=== PATIENT | male | born 1965 | race Caucasian/White ===

== ENCOUNTER → 2018-02-24 | Outpatient (CLI) | payer BC ==
--- NOTE | 2018-02-24 16:31 | ECHOF ---
Referral Reason:R94.31 Abnodrmal ekg MEASUREMENTS -------- HEIGHT: 185.4 cm WEIGHT: 113.4 kg BP: 147/83 RVIDd: 2.7 cm (< 3.3) IVSd: 1.4 cm (0.6 - 1.1) LVIDd: 4.8 cm (3.9 - 5.3) LVPWd: 1.5 cm (0.6 - 1.1) IVSs: 1.9 cm LVIDs: 3.3 cm LVPWs: 1.6 cm LA Diam: 3.8 cm (2.7 - 3.8) LAESV Index (A-L): 20.80 ml/m Ao Diam: 3.7 cm (2.0 - 3.7) AV Cusp: 2.2 cm (1.5 - 2.6) MV EXCURSION: 19.436 mm (> 18.000) MV EF SLOPE: 96 mm/s (70 - 150) EPSS: 0.3 cm MV E Ryley: 0.66 m/s MV DecT: 250 ms MV A Ryley: 0.77 m/s MV E/A Ratio: 0.85 FINDINGS -------- Sinus rhythm. This was a technically adequate study. The left ventricular size is normal. There is moderate concentric left ventricular hypertrophy. O verall left ventricular systolic function is normal with, an EF between 55 - 60 %. The right ventricle is normal in size. Normal LA size by volume 22+/-6 ml/m2. The right atrium is normal in size. The aortic valve is trileaflet and appears structurally normal. Mild mitral annular calcification present. The tricuspid valve appears structurally normal. The pulmonic valve was not well visualized. The aortic root size is normal. Normal inferior vena cava with normal inspiratory collapse consistent with estimated right atrial pre ssure of 5 mmHg. There is no pericardial effusion. CONCLUSIONS -------- 1. Sinus rhythm. 2. This was a technically adequate study. 3. The left ventricular size is normal. 4. There is moderate concentric left ventricular hypertrophy. 5. Overall left ventricular systolic function is normal with, an EF between 55 - 60 %. 6. The right ventricle is normal in size. 7. Normal LA size by volume 22+/-6 ml/m2. 8. The right atrium is normal in size. 9. The aortic valve is trileaflet and appears structurally normal. 10. Mild mitral annular calcification present. 11. The tricuspid valve appears structurally normal. 12. The pulmonic valve was not well visualized. 13. The aortic root size is normal. 14. Normal inferior vena cava with normal inspiratory collapse consistent with estimated right atrial pressure of 5 mmHg. 15. There is no pericardial effusion. TERRITORY ACCOUNT EXECUTIVE: Lidia Weiss RDCS
== END | disposition home or self-care (01) ==
LOC: RADECHMAIN 13:48
PROVIDERS: ATTEND Internal Medicine
DX: I51.7 Cardiomegaly (principal); I05.8 Other rheumatic mitral valve diseases
CPT/HCPCS: 93306

== ENCOUNTER → 2018-03-26 | Outpatient (CLI) | payer BC ==
--- NOTE | 2018-03-26 14:38 | US ---
EXAMINATION TYPE: US kidneys/renal and bladder DATE OF EXAM: 03/26/2018 COMPARISON: NONE CLINICAL HISTORY: N39.0 UTI. EXAM MEASUREMENTS: Right Kidney: 11.2 x 5.5 x 6.0 cm Left Kidney: 10.1 x 6.5 x 5.4 cm Right Kidney: No hydronephrosis or masses seen Left Kidney: No hydronephrosis or masses seen Bladder: wnl Bilateral Jets seen: Yes There is no evidence for hydronephrosis at this point in time. No nephrolithiasis is seen. No april s are identified on images saved. The urinary bladder is anechoic. Bilateral ureteral jets are seen . IMPRESSION: Unremarkable study.
== END ==
LOC: RADUSWWP 14:07
PROVIDERS: ATTEND Internal Medicine
DX: N39.0 Urinary tract infection, site not specified (principal)
CPT/HCPCS: 76770

== ENCOUNTER 2023-11-23 01:32 | Inpatient (IN) | payer BC ==
[2023-11-23 02:44] LABS: INR 0.9 (<1.2); Prothrombin Time 10.3 sec (10.0-12.5)
[2023-11-23 02:46] LABS: Basophils # (A) 0.1 k/uL (0-0.2); Basophils % (A) 0 %; Eosinophils # (A) 0.1 k/uL (0-0.7); Eosinophils % (A) 0 %; HCT 41.4 % (39.0-53.0); HGB 14.5 gm/dL (13.0-17.5); Lymphocytes # (A) 0.8 k/uL (1.0-4.8); Lymphocytes % (A) 4 %; MCH 34.2 pg (25.0-35.0); MCHC 35.1 g/dL (31.0-37.0); MCV 97.4 fL (80.0-100.0); Mean Platelet Volume 8.7; Monocytes % (A) 5 %; Neutrophils # (A) 16.9 k/uL (1.3-7.7); Neutrophils % (A) 89 %; Platelet Count 207 k/uL (150-450); RBC 4.25 m/uL (4.30-5.90); RDW 13.1 % (11.5-15.5); WBC 18.9 k/uL (3.8-10.6)
[2023-11-23 02:48] LABS: ALT 16 U/L (4-49); AST 26 U/L (17-59); African American GFR (CKD) >90 (>60 ml/min/1.73 sqM); Albumin 3.8 g/dL (3.5-5.0); Alkaline Phosphatase 92 U/L (38-126); Anion Gap 10 mmol/L; Blood Urea Nitrogen 7 mg/dL (9-20); Calcium 8.7 mg/dL (8.4-10.2); Carbon Dioxide 22 mmol/L (22-30); Chloride 105 mmol/L (98-107); Glucose 138 mg/dL (74-99); Non-African American GFR(CKD) >90 (>60 ml/min/1.73 sqM); Potassium 4.1 mmol/L (3.5-5.1); Sodium 137 mmol/L (137-145); Total Bilirubin 1.2 mg/dL (0.2-1.3); Total Protein 6.7 g/dL (6.3-8.2)
[2023-11-23] MEDS ORDERED: MORPHINE SULFATE 4 MG/ML SYRINGE IV PRN (02:52)
[2023-11-23] MEDS ORDERED: ONDANSETRON 4 MG/2 ML VIAL IVP PRN (02:52)
[2023-11-23] MEDS ORDERED: NALOXONE 0.4 MG/ML 1 ML VIAL IV PRN (02:52)
[2023-11-23] MEDS: SODIUM CHLORIDE 0.9% 1,000 ML IV SCH ×2 (03:18→09:43)
--- NOTE | 2023-11-23 03:19 | ED ---
General Adult HPI - General Chief complaint: Skin/Abscess/Foreign Body Stated complaint: Celluitis Time Seen by Provider: 11/23/23 01:39 Source: patient, EMS Mode of arrival: EMS - History of Present Illness Initial comments: Cornell is a 58-year-old male RIGHT hand dominant, was sent to our hospital for evaluation by orthopedics due to a possible flexor tenosynovitis of the left hand. Patient reports that on of this week he had his dog at the vet, the dog bit him on his left hand. Patient washed the hand but didn't receive any treatment or antibiotics. The hand is become more painful swollen patient feels that he can barely move his thumb and index finger. Redness and swelling is tracking up his arm which prompted him to go to the ER for evaluation. The outside ER he was found to have a white count of 18.4 and was started on Unasyn. Patient does note that some years ago he was hospitalized for 4-5 days due to similar infections in bilateral hands after being bitten by one of his dogs. At the outside ER patient was also found to have a blood pressure of 240/140 and his EKG showed some possible ST depressions had a thorough workup including troponins which were negative. His blood pressure failed to improve with labetalol injections and he was started on a Cardene infusion and transferred here for further management. - Related Data Allergies Allergy/AdvReac Type Severity Reaction Status Date / Time No Known Allergies Allergy Verified 11/23/23 01:56 Review of Systems ROS Statement: Those systems with pertinent positive or pertinent negative responses have been documented in the HPI. ROS Other: All systems not noted in ROS Statement are negative. Past Medical History Past Medical History: Hypertension Additional Past Medical History / Comment(s): hernia History of Any Multi-Drug Resistant Organisms: None Reported Past Surgical History: No Surgical Hx Reported Smoking Status: Current every day smoker Past Alcohol Use History: Daily Past Drug Use History: Marijuana General Exam Limitations: no limitations General appearance: alert Head exam: Present: atraumatic, normocephalic Eye exam: Present: normal appearance ENT exam: Present: normal exam Respiratory exam: Absent: respiratory distress Cardiovascular Exam: Present: normal rhythm GI/Abdominal exam: Present: soft. Absent: distended Rectal exam: Present: deferred Left Forearm Wrist exam: Present: tenderness, swelling, erythema Hand Wrist exam: Present: tenderness, swelling, erythema Neuro motor exam: Present: wrist extension intact, fingers 2-5 abduction intact. Absent: thumb opposition intact, thumb IP flexion intact, thumb adduction intact Vascular: Present: normal capillary refill Neurological exam: Present: alert, oriented X3 Psychiatric exam: Present: normal affect, normal mood Skin exam: Present: warm, dry Course Vital Signs 11/23/23 01:36 Temperature 98.4 F Pulse Rate 87 Respiratory 20 Rate Blood Pressure 167/93 O2 Sat by Pulse 97 Oximetry EKG Findings - EKG Comments: EKG Findings:: EKG interpreted by me, EKG obtained due to hypertension, EKG obtained at 1:49 AM, rate is 91 rhythm is sinus with leftward axis, normal intervals [place] 136 QRS 112 QTC [address] elevations there's mild ST depressions in the inferior leads no evidence of acute infarction. Medical Decision Making - Medical Decision Making Was pt. sent in by a medical professional or institution (, PA, DIRECT MAIL CLERK, urgent care, hospital, or skilled nursing...) When possible be specific @ -Yes, transfer from outside facility Did you speak to anyone other than the patient for history (EMS, parent, family, police, friend...)? What history was obtained from this source @ Yes, , EMS Did you review nursing and triage notes (agree or disagree)? Why? @ -I reviewed and agree with nursing and triage notes Were old charts reviewed (outside hosp., previous admission, EMS record, old EKG, old radiological studies, urgent care reports/EKG's, skilled nursing records)? Report findings @ -No old charts were reviewed Differential Diagnosis (chest pain, altered mental status, abdominal pain women, abdominal pain men, vaginal bleeding, weakness, fever, dyspnea, syncope, headache, dizziness, GI bleed, back pain, seizure, CVA, palpatations, mental health)? @ -differential cellulitis of the hand, abscess, flexor tenosynovitis EKG interpreted by me (3pts min.). @ -As above X-rays interpreted by me (1pt min.). @ -X-ray of the left hand with no obvious free air or foreign bodies CT interpreted by me (1pt min.). @ -None done U/S interpreted by me (1pt. min.). @ -None done What testing was considered but not performed or refused? (CT, X-rays, U/S, labs)? Why? @ -None What meds were considered but not given or refused? Why? @ -Cardene was discontinued upon arrival due to change in blood pressure greater than goal Did you discuss the management of the patient with other professionals (professionals i.e. , PA, DIRECT MAIL CLERK, lab, RT, psych nurse, medical social consultant, upsetter helper, teacher, commanding officer traffic division, showcase trimmer)? Give summary @ -YES discussed with Dr. Mosquera Was smoking cessation discussed for >3mins.? @ -No Was critical care preformed (if so, how long)? @ -No Were there social determinants of health that impacted care today? How? (H omelessness, low income, unemployed, alcoholism, drug addiction, transportation, low edu. Level, literacy, decrease access to med. care, snf, rehab)? @ -Alcoholism Was there de-escalation of care discussed even if they declined (Discuss DNR or withdrawal of care, Hospice)? DNR status @ -No What co-morbidities impacted this encounter? (DM, HTN, Smoking, COPD, CAD, Cancer, CVA, ARF, Chemo, Hep., AIDS, mental health diagnosis, sleep apnea, morbid obesity)? @ -Hypertension, smoking, alcohol use Was patient admitted / discharged? Hospital course, mention meds given and route, prescriptions, significant lab abnormalities, going to OR and other pertinent info. @ -Admit Patient care was discussed with transferring physician upon arrival x-rays of the hand were performed I see no gas in the tissues I see no foreign bodies. Management of the patient's acute infection of his hand was discussed with Dr. Mosquera agrees with plan for admission to medicine with orthopedic consult, antibiotics. The patient's blood pressure has improved greater than 25% from presenting blood pressure, Cardene was discontinued upon arrival here. Patient will be admitted with a consult to cardiology for accelerated hypertension. Undiagnosed new problem with uncertain prognosis? @ -Yes Drug Therapy requiring intensive monitoring for toxicity (Heparin, Nitro, Insulin, Cardizem)? @ -No Were any procedures done? @ -No Diagnosis/symptom? @ -Cellulitis of left hand Acute, or Chronic, or Acute on Chronic? @ -Acute Uncomplicated (without systemic symptoms) or Complicated (systemic symptoms)? @ -Complicated Side effects of treatment? @ -No Exacerbation, Progression, or Severe Exacerbation? @ -No Poses a threat to life or bodily function? How? (Chest pain, [place], [place], pneumonia, PE, COPD, DKA, ARF, appy, cholecystitis, CVA, Diverticulitis, Homicidal, Morales icidal, threat to staff... and all critical care pts) @ -Yes, can result in severe infection, loss of digits or hand, sepsis, septic shock Diagnosis/symptom? @ -Accelerated hypertension Acute, or Chronic, or Acute on Chronic? @ -Acute Uncomplicated (without systemic symptoms) or Complicated (systemic symptoms)? @ -Complicated, with EKG changes Side effects of treatment? @ -none Exacerbation, Progression, or Severe Exacerbation] @ -no Poses a threat to life or bodily function? @ -Yes, Can cause in the organ damage - Lab Data Result diagrams: 11/23/23 02:15 11/23/23 02:15 Lab Results 11/23/23 11/23/23 11/23/23 Range/Units 02:15 02:15 02:15 WBC 18.9 H (3.8-10.6) k/uL RBC 4.25 L (4.30-5.90) m/uL Hgb 14.5 (13.0-17.5) gm/dL Hct 41.4 (39.0-53.0) % MCV 97.4 (80.0-100.0) fL MCH 34.2 (25.0-35.0) pg MCHC 35.1 (31.0-37.0) g/dL RDW 13.1 (11.5-15.5) % Plt Count 207 (150-450) k/uL MPV 8.7 Neutrophils % 89 % Lymphocytes % 4 % Monocytes % 5 % Eosinophils % 0 % Basophils % 0 % Neutrophils # 16.9 H (1.3-7.7) k/uL Lymphocytes # 0.8 L (1.0-4.8) k/uL Monocytes # 1.0 (0-1.0) k/uL Eosinophils # 0.1 (0-0.7) k/uL Basophils # 0.1 (0-0.2) k/uL PT 10.3 (10.0-12.5) sec INR 0.9 (<1.2) APTT 23.0 (22.0-30.0) sec Sodium 137 (137-145) mmol/L Potassium 4.1 (3.5-5.1) mmol/L Chloride 105 (98-107) mmol/L Carbon Dioxide 22 (22-30) mmol/L Anion Gap 10 mmol/L BUN 7 L (9-20) mg/dL Creatinine 0.85 (0.66-1.25) mg/dL Est GFR (CKD-EPI)AfAm >90 (>60 ml/min/1.73 sqM) Est GFR (CKD-EPI)NonAf >90 (>60 ml/min/1.73 sqM) Glucose 138 H (74-99) mg/dL Plasma Lactic Acid Rufino (0.7-2.0) mmol/L Calcium 8.7 (8.4-10.2) mg/dL Total Bilirubin 1.2 (0.2-1.3) mg/dL AST 26 (17-59) U/L ALT 16 (4-49) U/L Alkaline Phosphatase 92 (38-126) U/L Total Protein 6.7 (6.3-8.2) g/dL Albumin 3.8 (3.5-5.0) g/dL 11/23/23 Range/Units 02:19 WBC (3.8-10.6) k/uL RBC (4.30-5.90) m/uL Hgb (13.0-17.5) gm/dL Hct (39.0-53.0) % MCV (80.0-100.0) fL MCH (25.0-35.0) pg MCHC (31.0-37.0) g/dL RDW (11.5-15.5) % Plt Count (150-450) k/uL MPV Neutrophils % % Lymphocytes % % Monocytes % % Eosinophils % % Basophils % % Neutrophils # (1.3-7.7) k/uL Lymphocytes # (1.0-4.8) k/uL Monocytes # (0-1.0) k/uL Eosinophils # (0-0.7) k/uL Basophils # (0-0.2) k/uL PT (10.0-12.5) sec INR (<1.2) APTT (22.0-30.0) sec Sodium (137-145) mmol/L Potassium (3.5-5.1) mmol/L Chloride (98-107) mmol/L Carbon Dioxide (22-30) mmol/L Anion Gap mmol/L BUN (9-20) mg/dL Creatinine (0.66-1.25) mg/dL Est GFR (CKD-EPI)AfAm (>60 ml/min/1.73 sqM) Est GFR (CKD-EPI)NonAf (>60 ml/min/1.73 sqM) Glucose (74-99) mg/dL Plasma Lactic Acid Rufino 1.7 (0.7-2.0) mmol/L Calcium (8.4-10.2) mg/dL Total Bilirubin (0.2-1.3) mg/dL AST (17-59) U/L ALT (4-49) U/L Alkaline Phosphatase (38-126) U/L Total Protein (6.3-8.2) g/dL Albumin (3.5-5.0) g/dL Disposition Clinical Impression: Cellulitis of left hand, Dog bite, Hypertension, accelerated, Tobacco abuse, Alcohol abuse Disposition: ADMITTED IP TO THIS HOSP Condition: Serious Is patient prescribed a controlled substance at d/c from ED?: No Referrals: Cruzito Matos MD [Primary Care Provider] - 1-2 days
[2023-11-23] MEDS ORDERED: AMPICILLIN-SULBACTAM 3 GM in SODIUM CHLORIDE 0.9% 100 ML IVPB STA (03:59)
--- NOTE | 2023-11-23 05:00 | XR ---
EXAM: XR Left Hand Complete, 3 or More Views CLINICAL HISTORY: ITS.REASON XR Reason: dog bite TECHNIQUE: Frontal, lateral and oblique views of the left hand. COMPARISON: No relevant prior studies available. FINDINGS: Bones/joints: Remote healed left third metacarpal head fracture. No dislocation. Soft tissues: Unremarkable. No radiopaque foreign body. IMPRESSION: No acute findings in the left hand.
[2023-11-23] MEDS ORDERED: LOSARTAN 25 MG TAB PO SCH (09:00)
[2023-11-23] MEDS: ASPIRIN 81 MG PO SCH (09:30)
[2023-11-23] MEDS: NICOTINE 21MG/24HR PATCH TRANSDERM SCH (09:32)
[2023-11-23] MEDS: AMPICILLIN-SULBACTAM 3 GM in SODIUM CHLORIDE 0.9% 100 ML IVPB SCH ×3 (09:41→21:25)
--- NOTE | 2023-11-23 10:40 | P.CRDCN ---
History of Present Illness History of present illness: HISTORY OF PRESENT ILLNESS: This is a 58 year old male with a past medical history significant for hypertension and nicotine dependence. 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 We have been asked to see the patient in consultation for hypertension. Patient examined at the bedside in the ER. Patient initially presented to [facility] due to an infection in his left hand after sustaining a dog bite. Patient was found to have significantly elevated blood pressures with a systolic over 200 and he was transferred to [facility] for further evaluation. The patient was initially started on a Cardene drip. This has subsequently been discontinued. His most recent blood pressure is 159/92. Patient's family is at the bedside and states the patient does have a history of hypertension and was previously prescribed antihypertensive medications but he stopped taking these. He currently denies any chest pain or pressure. He denies any shortness of breath. He states that he walks about 15,000 steps a day without any issues. He is a current cigarette smoker and smokes 1 and half packs per day. DIAGNOSTICS: - EKG reveals T wave inversions in inferolateral leads. LVH. - Laboratory data: WBC 18.9. Hemoglobin 14.5. Platelet count 207. Sodium 137. Potassium 4.1. BUN 7. Creatinine 0.85. Lactic acid 1.7. Troponin 0.037. 0.043. - Current home cardiac medications include none - Most recent echocardiogram obtained in 2018 revealed ejection fraction 55 to 60%, moderate LVH - Cardiac catheterization history: Patient denies REVIEW OF SYSTEMS: At the time of my exam: CONSTITUTIONAL: Denies fever or chills. HEENT: Denies blurred vision, vision changes, or eye pain. Denies hemoptysis CARDIOVASCULAR: Denies chest pain. Denies orthopnea. Denies PND. Denies palpitations RESPIRATORY: Denies shortness of breath. GASTROINTESTINAL: Denies abdominal pain. Denies nausea or vomiting. HEMATOLOGIC: Denies bleeding disorders. GENITOURINARY: Denies any blood in urine. SKIN: Denies pruitis. Denies rash. Reports wound to left hand from dog bite. PHYSICAL EXAM: VITAL SIGNS: Reviewed. GENERAL: Well-developed in no acute distress. HEENT: Head is normocephalic. Pupils are equal, round. Sclerae anicteric. Mucous membranes of the mouth are moist. Neck supple. No JVD or thyromegaly LUNGS: Respirations even and unlabored. Lungs essentially clear to auscultation bilaterally. HEART: Regular rate and rhythm. S1 and S2 heard. ABDOMEN: Soft. Nondistended. Nontender. EXTREMITIES: Normal range of motion. No clubbing or cyanosis. Peripheral pulses intact. No lower extremity edema NEUROLOGIC: Awake and alert. Oriented x 3. ASSESSMENT: Left hand infection, status post dog bite Leukocytosis Hypertensive emergency, improved Abnormal troponins, flat, likely secondary to uncontrolled blood pressures and infectious process History of hypertension, not on antihypertensive medications outpatient Nicotine dependence, patient smokes 1.5 packs/day Obesity: BMI 35.3 History of medication noncompliance PLAN: Obtain 2D echo to assess cardiac structure and function Begin aspirin 81 mg daily, atorvastatin 40 mg daily, and losartan 25 mg daily Continue to monitor blood pressure Check lipid panel and hemoglobin A1c Further recommendations pending patient course Nurse practitioner note has been reviewed by physician. Signing provider agrees with the documented findings, assessment, and plan of care documented by SILK BLOCKER as a scribe. Past Medical History Past Medical History: Hypertension Additional Past Medical History / Comment(s): hernia History of Any Multi-Drug Resistant Organisms: None Reported Past Surgical History: No Surgical Hx Reported Smoking Status: Current every day smoker Past Alcohol Use History: Daily Past Drug Use History: Marijuana Medications and Allergies Home Medications Medication Instructions Recorded Confirmed Type No Known Home Medications 11/23/23 11/23/23 History Allergies Allergy/AdvReac Type Severity Reaction Status Date / Time No Known Allergies Allergy Verified 11/23/23 08:07 Physical Exam Vitals: Vital Signs Temp Pulse Resp BP Pulse Ox 11/23/23 06:00 88 18 150/86 96 11/23/23 05:00 84 18 152/88 96 11/23/23 04:00 81 18 150/84 95 11/23/23 01:36 98.4 F 87 20 167/93 97 Intake and Output 11/22/23 11/23/23 11/23/23 22:59 06:59 14:59 Other: Weight 124.738 kg Results 11/23/23 02:15 11/23/23 02:15 Cardiac Enzymes 11/23/23 11/23/23 Range/Units 02:15 02:31 AST 26 (17-59) U/L Troponin I 0.037 H* (0.000-0.034) ng/mL Coagulation 11/23/23 Range/Units 02:15 PT 10.3 (10.0-12.5) sec APTT 23.0 (22.0-30.0) sec CBC 11/23/23 Range/Units 02:15 WBC 18.9 H (3.8-10.6) k/uL RBC 4.25 L (4.30-5.90) m/uL Hgb 14.5 (13.0-17.5) gm/dL Hct 41.4 (39.0-53.0) % Plt Count 207 (150-450) k/uL Comprehensive Metabolic Panel 11/23/23 Range/Units 02:15 Sodium 137 (137-145) mmol/L Potassium 4.1 (3.5-5.1) mmol/L Chloride 105 (98-107) mmol/L Carbon Dioxide 22 (22-30) mmol/L BUN 7 L (9-20) mg/dL Creatinine 0.85 (0.66-1.25) mg/dL Glucose 138 H (74-99) mg/dL Calcium 8.7 (8.4-10.2) mg/dL AST 26 (17-59) U/L ALT 16 (4-49) U/L Alkaline Phosphatase 92 (38-126) U/L Total Protein 6.7 (6.3-8.2) g/dL Albumin 3.8 (3.5-5.0) g/dL Current Medications Generic Name Dose Route Start Last Admin Trade Name Freq PRN Reason Stop Dose Admin Sodium Chloride 1,000 mls @ 130 mls/hr 11/23/23 03:00 11/23/23 03:18 Saline 0.9% IV 130 mls/hr .[id number] [facility] Administration Ampicillin Sodium/Sulbactam 100 mls @ 200 mls/hr 11/23/23 10:00 Sodium 3 gm/ Sodium Chloride IVPB Q6H [facility] Protocol Morphine Sulfate 4 mg 11/23/23 02:52 Morphine Sulfate 4 Mg/Ml Syringe IV Q4HR PRN Severe Pain (Scale 7 to 10) Naloxone HCl 0.2 mg 11/23/23 02:52 Naloxone 0.4 Mg/Ml 1 Ml Vial IV Q2M PRN Opioid Reversal Nicotine 1 patch 11/23/23 09:00 Nicotine 21mg/24hr Patch TRANSDERM DAILY [facility] Ondansetron HCl 4 mg 11/23/23 02:52 Ondansetron 4 Mg/2 Ml Vial IVP Q8HR PRN Nausea And Vomiting Intake and Output 11/22/23 11/23/23 11/23/23 22:59 06:59 14:59 Other: Weight 124.738 kg 11/23/23 02:15 11/23/23 02:15
[2023-11-23 12:08] LABS: Chol/HDL Ratio 2.68 Ratio; LDL Cholesterol,Calculated 59.4 mg/dL (0.0-131.0)
[2023-11-23] MEDS: ENOXAPARIN 40 MG/0.4 ML SYRINGE SQ SCH (12:40)
[2023-11-23] MEDS ORDERED: TEMAZEPAM 15 MG CAP PO PRN (12:51)
[2023-11-23] MEDS ORDERED: LACTULOSE 20 GM/30 ML CUP PO PRN (12:51)
[2023-11-23] MEDS ORDERED: ACETAMINOPHEN TAB 325 MG TAB PO PRN (12:51)
[2023-11-23] MEDS ORDERED: CALCIUM CARBONATE 500 MG CHEWABLE PO PRN (12:51)
--- NOTE | 2023-11-23 13:10 | P.CNOR ---
History of Present Illness - HPI Consult date: 11/23/23 Consult reason: other (Left hand celluitis, possible infected tenosynovitis) History of present illness: The patient is a 58 y/o male with a past medical history including hypertension and nicotine dependence who presented to the emergency department at [facility] with a left hand infection. He was transferred from an outside hospital for further evaluation and care by orthopedic hand surgery. He was started on Unasyn on arrival. He states his left thumb was caught by his dog's tooth while at the vet's office on 11/19/2023. Initially, he cleansed the wound and it was looking ok but they started to become swollen over the weekend. He noticed redness in his volar wrist and forearm, he went to the ER for further care. Infected tenosynovitis was suspected and orthopedics was consulted. Today, the patient states the swelling in his hand is improving but the redness and swelling into his forearm is getting a little worse. There is no drainage from the left thumb wound at this time. He states he feels fine, denies fever and chills. The patient's pain is very controlled and tolerable at this time. He was found to be very hypertensive in the ER and cardiology has been consulted . Review of Systems Constitutional: Denies chills, Denies fatigue, Denies fever Cardiovascular: Reports high blood pressure, Denies chest pain, Denies shortness of breath Respiratory: Denies cough Gastrointestinal: Denies diarrhea, Denies nausea, Denies vomiting Musculoskeletal: left: hand stiffness, hand swelling Past Medical History Past Medical History: Hypertension Additional Past Medical History / Comment(s): hernia History of Any Multi-Drug Resistant Organisms: None Reported Past Surgical History: No Surgical Hx Reported Smoking Status: Current every day smoker Past Alcohol Use History: Daily Past Drug Use History: Marijuana Medications and Allergies Home Medications Medication Instructions Recorded Confirmed Type No Known Home Medications 11/23/23 11/23/23 History Allergies Allergy/AdvReac Type Severity Reaction Status Date / Time No Known Allergies Allergy Verified 11/23/23 08:07 Physical Examination The patient is a 58 y/o male in no acute distress. He is alert and oriented x3. Exam of the left hand reveals swelling and erythema to the left thumb. There is a scabbed wound on the volar surface of the thumb at the proximal phalanx level. No active drainage at this time. No point tenderness to the FPL tendon into the carpal tunnel and wrist. No stretch pain to the thumb. No abscess or fluid collection palpable. There is demarcated erythema into the mid forearm with swelling. Mild stretch pain to the other fingers with tightness in the forearm. Neurological and circulatory status is intact. Results X-rays of the left hand reveal no acute fractures or signs of osteomyelitis. - Labs Labs: Abnormal Lab Results - Last 24 Hours (Table) 11/23/23 11/23/23 11/23/23 Range/Units 02:15 02:15 02:31 WBC 18.9 H (3.8-10.6) k/uL RBC 4.25 L (4.30-5.90) m/uL Neutrophils # 16.9 H (1.3-7.7) k/uL Lymphocytes # 0.8 L (1.0-4.8) k/uL BUN 7 L (9-20) mg/dL Glucose 138 H (74-99) mg/dL Troponin I 0.037 H* (0.000-0.034) ng/mL 11/23/23 Range/Units 09:14 WBC (3.8-10.6) k/uL RBC (4.30-5.90) m/uL Neutrophils # (1.3-7.7) k/uL Lymphocytes # (1.0-4.8) k/uL BUN (9-20) mg/dL Glucose (74-99) mg/dL Troponin I 0.043 H* (0.000-0.034) ng/mL H & H 11/23/23 Range/Units 02:15 Hgb 14.5 (13.0-17.5) gm/dL Hct 41.4 (39.0-53.0) % Coagulation 11/23/23 Range/Units 02:15 INR 0.9 (<1.2) Result Diagrams: 11/23/23 02:15 11/23/23 02:15 Assessment and Plan (1) Cellulitis of left hand Current Visit: Yes Status: Acute Code(s): L03.114 - CELLULITIS OF LEFT UPPER LIMB SNOMED Code(s): 10761276338640019 (2) Dog bite Current Visit: Yes Status: Acute Code(s): W54.0XXA - BITTEN BY DOG, INITIAL ENCOUNTER SNOMED Code(s): 005793814 (3) Hypertension, accelerated Current Visit: Yes Status: Acute Code(s): I10 - ESSENTIAL (PRIMARY) HYPERTENSION SNOMED Code(s): 56280415 (4) Tobacco abuse Current Visit: Yes Status: Acute Code(s): Z72.0 - TOBACCO USE SNOMED Code(s): 266889106 Plan: The clinical and x-ray findings were discussed with the patient and his at the bedside in the ER today. The case was discussed at length with Dr. Garcia. There does not appear to be any fluid collection or abscess to the thumb at this time. No infected flexor tenosynovitis is suspected either. We will give the IV antibiotics at least 24 hours to see improvement to the swelling and erythema and allow the infection to localize potentially. He may need an I&D in the near future depending on his course. He may eat today but will be NPO tonight at midnight. We will continue to follow the patient closely.
--- NOTE | 2023-11-23 13:27 | CA ---
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 Alexis Miller RDCS Procedure CPT: Indications: LV function, HTN Cardiac Hx: Technical Quality: Fair Contrast 1: Total Dose (mL): Contrast 2: Total Dose (mL): MEASUREMENTS (Male / Female) Normal Values 2D ECHO LV Diastolic Diameter PLAX 5.7 cm 4.2 - 5.9 / 3.9 - 5.3 cm LV Systolic Diameter PLAX 3.9 cm IVS Diastolic Thickness 1.5 cm 0.6 - 1.0 / 0.6 - 0.9 cm LVPW Diastolic Thickness 1.2 cm 0.6 - 1.0 / 0.6 - 0.9 cm LV Relative Wall Thickness 0.5 RV Internal Dim ED PLAX 2.8 cm LVOT Diameter 2.2 cm Aortic Root Diameter 3.0 cm LA Systolic Diameter LX 2.3 cm 3.0 - 4.0 / 2.7 - 3.8 cm LV Diastolic Volume MOD BP 79.9 cm??? 67 - 155 / 56 - 104 cm??? LV Systolic Volume MOD BP 32.8 cm??? 22 - 58 / 19 - 49 cm??? LV Ejection Fraction MOD BP 59.0 % >= 55 % LV Cardiac Index MOD BP 1544.3 cm???/min???m??? LV Diastolic Volume MOD 4C 85.2 cm??? LV Systolic Volume MOD 4C 40.9 cm??? LV Ejection Fraction MOD 4C 52.0 % LV Cardiac Index MOD 4C 1452.3 cm???/min???m??? LV Diastolic Length 4C 7.3 cm LV Systolic Length 4C 6.3 cm LV Diastolic Volume MOD 2C 74.0 cm??? LV Systolic Volume MOD 2C 25.3 cm??? LV Ejection Fraction MOD 2C 65.9 % LV Cardiac Index MOD 2C 1599.4 cm???/min???m??? LV Diastolic Length 2C 7.2 cm LV Systolic Length 2C 6.6 cm DOPPLER AV Peak Velocity 167.5 cm/s AV Peak Gradient 11.2 mmHg AV Mean Velocity 123.7 cm/s AV Mean Gradient 6.9 mmHg AV Velocity Time Integral 28.5 cm LVOT Peak Velocity 124.1 cm/s LVOT Peak Gradient 6.2 mmHg LVOT Velocity Time Integral 20.6 cm LVOT Stroke Volume 78.0 cm??? LVOT Stroke Volume Index 31.4 ml/m??? LVOT Cardiac Index 2558.8 cm???/min???m??? AV Area Cont Eq vti 2.7 cm??? AV Area Cont Eq pk 2.8 cm??? MV Peak Velocity 127.3 cm/s MV Peak Gradient 6.5 mmHg MV Mean Velocity 73.6 cm/s MV Mean Gradient 2.6 mmHg MV Velocity Time Integral 39.2 cm MR Peak Velocity 510.6 cm/s MR Peak Gradient 104.3 mmHg Mitral E Point Velocity 108.4 cm/s Mitral A Point Velocity 91.1 cm/s Mitral E to A Ratio 1.2 MV Deceleration Time 219.7 ms MV E' Velocity 8.9 cm/s Mitral E to MV E' Ratio 12.1 TR Peak Velocity 306.1 cm/s TR Peak Gradient 37.5 mmHg Right Ventricular Systolic Press 42.5 mmHg PV Peak Velocity 97.3 cm/s PV Peak Gradient 3.8 mmHg FINDINGS Left Ventricle Mild left ventricular dilatation. Mild to moderate concentric LVH. Left ventricular ejection fraction is estimated at 55-60 %. Right Ventricle Normal right ventricular size. RVSP= 42mmHg. Right Atrium Normal right atrial size. Left Atrium Mild left atrial dilatation. Mitral Valve Structurally normal mitral valve. Mild to moderate MR. Aortic Valve Trileaflet aortic valve. Mild AV calcification. No aortic stenosis. No aortic regurgitation. Tricuspid Valve Structurally normal tricuspid valve. Mild TR. Pulmonic Valve Pulmonic valve not well visualized. No pulmonic regurgitation. Pericardium Normal pericardium. Aorta Normal size aortic root. CONCLUSIONS Left ventricular ejection fraction is estimated at 55-60 %. No obvious regional wall motion abnormalities Moderate concentric LVH. Mild to moderate MR. No effusion Previewed by: Dr Dusty Boland (Electronically Signed) Final Date: 23 November 2023 13:26
--- NOTE | 2023-11-23 14:09 | XR ---
EXAMINATION TYPE: XR chest 2V DATE OF EXAM: 11/23/2023 COMPARISON: 02/01/2015 HISTORY: Shortness of breath TECHNIQUE: Frontal and lateral views of the chest are obtained. FINDINGS: Scattered senescent parenchymal changes noted. Hyperinflation compatible with COPD. No evidence for infiltrate. No evidence for atelectasis. Heart size is stable. Mediastinal structures are stable and grossly unremarkable. No evidence for hilar prominence. Degenerative changes dorsal spine. IMPRESSION: 1. No evidence for acute pulmonary disease.
[2023-11-23] MEDS ORDERED: METOPROLOL TARTRATE 25 MG TAB PO STA (16:06)
--- NOTE | 2023-11-23 16:09 | P.HPIM ---
History of Present Illness H&P Date: 11/23/23 Chief Complaint: Dog bite This is a pleasant 58-year-old patient who follows with Dr. Matos. In fact has not followed up for quite some time. Patient has been prescribed medication for hypertension and ran out of his insurance changed his job and never took medications again. Yesterday taken his pitbull dog which she has had for 5 years down to the [facility] [place] inspector. To get his ear checked out. The dog was per anesthesia but they realized that the dog is actually not fully under. He tried to pet the dog down. While the dog was still a bit confused and it bit his left thumb. Patient then went down to [facility]. He was noted to have a blood pressure over 220 systolic. Also some EKG changes. He was felt to have flexor tenosynovitis as he was sent down here for orthopedic. The hand become painful and swollen. And some limitation of movement of his fingers. He had a white count of 18.4 started on Unasyn. Patient was put on Cardizem infusion and was t ransferred here. It does not seem that patient was given a tetanus shot at [facility]. Patient denies any chest pain. Being a smoker patient is at baseline has some wheezing and cough. The pitbull dog is held all his immunizations. Review of systems: GEN.: Tired EYES: None HEENT: None NECK: None RESPIRATORY: Some cough and chronic some wheezing] CARDIOVASCULAR: None GASTROINTESTINAL: None GENITOURINARY: None MUSCULOSKELETAL: As above LYMPHATICS: None HEMATOLOGICAL: None PSYCHIATRY: None NEUROLOGICAL: None Social history: Patient lives with his girlfriend Amirah. 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 Smokes a pack and a day for close to 40 years. Drinks 6 pack beer a night. Does marijuana. Physical examination: VITAL SIGNS: 98.4, 87, 20, 167/93, 97% room air upon presentation GENERAL: BMI 35.3, laying in bed awake not in distress. EYES: Pupils equal. Conjunctiva aditi l. HEENT: External appearance of nose and ears normal, oral cavity grossly normal. NECK: JVD not raised; masses not palpable. HEART: First and second heart sounds are normal; no edema. LUNGS: Respiratory rate normal; decreased breath sounds some wheezing. ABDOMEN: Soft, nontender, liver spleen not palpable, no masses palpable. PSYCH: Alert and oriented x3; mood and affect aditi l. MUSCULOSKELETAL:No Clubbing/cyanosis;muscles-grossly intact. Left hand. Bite sven of the left thumb. Swelling of the left thumb and adjoining hand. Some limitation of movement at the MCP joint port at the index and the thumb. NEUROLOGICAL: Cranial nerves grossly intact; no facial asymmetry, power and sensation grossly intact. LYMPHATICS: No lymph nodes palpable in the axilla and neck INVESTIGATIONS, reviewed in the clinical context: November 23: White count 18.9 hemoglobin 14.5 platelets 207 sodium 137 potassium 4.1 creatinine 0.85 Troponin I 0.037, 0.043, 0.040 LDL 59.4 EKG tracing personally reviewed by me-[from [facility]] sinus rhythm. ST-T waves depression left and inferolateral leads. 2D echocardiogram EF 55 to 60%. Moderate concentric LVH Chest x-ray film personally reviewed by me-some hyperinflation Assessment and plan: -Accelerated hypertension. Patient has a prior history of hypertension was not taking any medications. Now presenting with a blood pressure of 240 systolic. Had to be put on a Cardizem drip. Also positive troponin. Cozaar.. Cardizem 60 mg p.o. 3 times daily - Troponin leak from uncontrolled blood pressure -COPD no current smoker DuoNeb 3 times daily -Chronic nicotine dependence cigarette smoker Nicotine patch 21 -Hypertensive heart disease Cardizem 60 mg p.o. 3 times daily. Cozaar. -Obesity BMI 35.3 Weight loss measures -Dog bite with infected left thumb and surrounding area of the hand. Orthopedic was consulted on presentation. Tetanus shot. IV Unasyn. Keep left arm elevated. Care was discussed with the patient. Questions answered. Past Medical History Past Medical History: Hypertension Additional Past Medical History / Comment(s): hernia History of Any Multi-Drug Resistant Organisms: None Reported Past Surgical History: No Surgical Hx Reported Smoking Status: Current every day smoker Past Alcohol Use History: Daily Past Drug Use History: Marijuana Medications and Allergies Home Medications Medication Instructions Recorded Confirmed Type No Known Home Medications 11/23/23 11/23/23 History Allergies Allergy/AdvReac Type Severity Reaction Status Date / Time No Known Allergies Allergy Verified 11/23/23 08:07 Physical Exam Vitals: Vital Signs Temp Pulse Resp BP Pulse Ox 11/23/23 09:29 86 22 159/92 95 11/23/23 06:00 88 18 150/86 96 11/23/23 05:00 84 18 152/88 96 11/23/23 04:00 81 18 150/84 95 11/23/23 01:36 98.4 F 87 20 167/93 97 Intake and Output 11/22/23 11/23/23 11/23/23 22:59 06:59 14:59 Other: Weight 124.738 kg Results CBC & Chem 7: 11/23/23 02:15 11/23/23 02:15 Labs: Abnormal Lab Results - Last 24 Hours (Table) 11/23/23 11/23/23 11/23/23 Range/Units 02:15 02:15 02:31 WBC 18.9 H (3.8-10.6) k/uL RBC 4.25 L (4.30-5.90) m/uL Neutrophils # 16.9 H (1.3-7.7) k/uL Lymphocytes # 0.8 L (1.0-4.8) k/uL BUN 7 L (9-20) mg/dL Glucose 138 H (74-99) mg/dL Troponin I 0.037 H* (0.000-0.034) ng/mL 11/23/23 Range/Units 09:14 WBC (3.8-10.6) k/uL RBC (4.30-5.90) m/uL Neutrophils # (1.3-7.7) k/uL Lymphocytes # (1.0-4.8) k/uL BUN (9-20) mg/dL Glucose (74-99) mg/dL Troponin I 0.043 H* (0.000-0.034) ng/mL
[2023-11-23] MEDS ORDERED: DIPH,PERTUS(ACELL)TETVAC-LF 0.5 ML VIAL IM ONE (16:33)
[2023-11-23] MEDS: DILTIAZEM ORAL 60 MG TAB PO SCH ×2 (16:42→21:24)
[2023-11-23] MEDS: IPRATROPIUM-ALBUTEROL 3 ML NEB INHALATION SCH ×2 (17:07→20:15)
[2023-11-23] MEDS: NAPROXEN 250 MG TAB PO SCH ×2 (17:37→21:24)
[2023-11-23] MEDS: ATORVASTATIN 40 MG TAB PO SCH (20:22)
[2023-11-23] MEDS ORDERED: METOPROLOL TARTRATE 50 MG TAB PO SCH (21:00)
--- NOTE | 2023-11-23 22:12 | P.CONS ---
History of Present Illness - Reason for Consult Consult date: 11/23/23 Infection Requesting physician: Hollis Russell - Chief Complaint Left thumb and forearm pain swelling redness x 2 days - History of Present Illness Patient is a 66-year-old male with a past medical his significant for hypertension current everyday smoker apparently has been bitten of his left thumb by his dog while he was at the vet office on , 11/19/2023 patient mention he did clean the wound and was given some antibiotic cream that he applied the next day the thumb swelling and pain has improved however the following day patient noticed to having worsening swelling and discomfort to the left thumb area which subsequently has been spreading to the left forearm patient be complaining of pain which is throbbing was almost 10 out of 10 by the time he presented to the ER radiating to the left forearm with associated swelling or redness patient did presented to the outside facility and the patient was subsequently transferred to [facility] for further evaluation on presentation to the hospital the patient was afebrile no fever have been recorded subsequently patient was not tachycardic hypotensive or hypoxic patient did have white count of 18.9 with a left shift creatinine 0.85 troponins are elevated liver isms are normal electrolytes are normal patient did have the hand x-ray no acute findings in the left hand patient also have a chest x-ray no evidence for acute cardiopulmonary disease patient was started on Unasyn infectious disease was consulted for further management of antibiotic therapy Review of Systems Positive point and negatives has been mentioned in the HPI, complete review of systems was performed and all other systems are negative Past Medical History Past Medical History: Hypertension Additional Past Medical History / Comment(s): hernia History of Any Multi-Drug Resistant Organisms: None Reported Past Surgical History: No Surgical Hx Reported Smoking Status: Current every day smoker Past Alcohol Use History: Daily Past Drug Use History: Marijuana - Past Family History Father History Unknown: Yes Medications and Allergies Home Medications Medication Instructions Recorded Confirmed Type Amoxic-Pot Clav 875-125Mg 1 tab PO Q12HR 14 Days #28 tab 11/27/23 Rx [Augmentin 875-125] Aspirin 81 mg PO DAILY tab 11/27/23 Rx Atorvastatin [Lipitor] 40 mg PO HS #30 tab 11/27/23 Rx Budesonide/Formoterol Fumarate 1 puff INHALATION BID #1 each 11/27/23 Rx [Symbicort 80-4.5 Mcg Inhaler] Chlorthalidone [Hygroton] 25 mg PO DAILY #30 tab 11/27/23 Rx Losartan [Cozaar] 50 mg PO BID #60 tab 11/27/23 Rx Naproxen [Naprosyn] 250 mg PO BID #30 tab 11/27/23 Rx Nicotine 21Mg/24Hr Patch [Habitrol] 1 patch TRANSDERM DAILY #42 patch 11/27/23 Rx Prazosin [Minipress] 2 mg PO TID #90 cap 11/27/23 Rx carvediloL [Coreg*] 12.5 mg PO BID-W/MEALS #60 tab 11/27/23 Rx Allergies Allergy/AdvReac Type Severity Reaction Status Date / Time No Known Allergies Allergy Verified 11/23/23 08:07 Physical Exam Vitals: Vital Signs Temp Pulse Resp BP Pulse Ox 11/23/23 12:38 81 18 141/88 98 11/23/23 09:29 86 22 159/92 95 11/23/23 06:00 88 18 150/86 96 11/23/23 05:00 84 18 152/88 96 11/23/23 04:00 81 18 150/84 95 11/23/23 01:36 98.4 F 87 20 167/93 97 Intake and Output 11/22/23 11/23/23 11/23/23 22:59 06:59 14:59 Other: Weight 124.738 kg GENERAL DESCRIPTION: Middle-aged male lying in bed, no distress. No tachypnea or accessory muscle of respiration use. HEENT: Shows Pallor , no scleral icterus. Oral mucous membrane is dry. No pharyngeal erythema or thrush NECK: Trachea central, no thyromegaly. LUNGS: Unlabored breathing. Clear to auscultation anteriorly. No wheeze or crackle. HEART: S1, S2, regular rate and rhythm. No loud murmur ABDOMEN: Soft, no tenderness , guarding or rigidity, no organomegaly EXTREMITIES: Left thumb did have a puncture wound on the palmar aspect with no drainage with associated swelling and redness that is tracking to the left forearm which is warm and tender to touch SKIN: No rash, no masses palpable. NEUROLOGICAL: The patient is awake, alert, oriented x3, mood and affect normal. Results CBC & Chem 7: 11/26/23 03:50 11/27/23 06:26 Labs: Abnormal Lab Results - Last 24 Hours (Table) 11/23/23 11/23/23 11/23/23 Range/Units 02:15 02:15 02:31 WBC 18.9 H (3.8-10.6) k/uL RBC 4.25 L (4.30-5.90) m/uL Neutrophils # 16.9 H (1.3-7.7) k/uL Lymphocytes # 0.8 L (1.0-4.8) k/uL BUN 7 L (9-20) mg/dL Glucose 138 H (74-99) mg/dL Troponin I 0.037 H* (0.000-0.034) ng/mL 11/23/23 11/23/23 Range/Units 09:14 11:53 WBC (3.8-10.6) k/uL RBC (4.30-5.90) m/uL Neutrophils # (1.3-7.7) k/uL Lymphocytes # (1.0-4.8) k/uL BUN (9-20) mg/dL Glucose (74-99) mg/dL Troponin I 0.043 H* 0.040 H* (0.000-0.034) ng/mL Assessment and Plan (1) Cellulitis of left hand Current Visit: Yes Status: Acute Code(s): L03.114 - CELLULITIS OF LEFT UPPER LIMB SNOMED Code(s): 46727029106129031 (2) Dog bite Current Visit: Yes Status: Acute Code(s): W54.0XXA - BITTEN BY DOG, INITIAL ENCOUNTER SNOMED Code(s): 467233377 Plan: 1patient presented to hospital with left thumb and left upper extremity cellulitis started with a dog bite to the left thumb area we will need to cover for the polymicrobial aiden usually associated with dog bite infection 2-marked area of the redness 3-check inflammatory markers 4-Unasyn 3 g every 6 hours to continue Multiple question concern answered We will follow on clinical condition and cultures to further adjust medication if needed Thank you for this consultation we will follow the patient along with you Dictation was produced using [employer] dictation software. please excuse any grammatical, word or spelling errors. Time with Patient: Greater than 30
[2023-11-24] MEDS: AMPICILLIN-SULBACTAM 3 GM in SODIUM CHLORIDE 0.9% 100 ML IVPB SCH ×4 (03:58→20:15)
[2023-11-24] MEDS: SODIUM CHLORIDE 0.9% 1,000 ML IV SCH (03:59)
[2023-11-24] MEDS ORDERED: LOSARTAN 50 MG TAB PO SCH (09:00)
[2023-11-24 09:02] LABS: Basophils # (A) 0.09 X 10*3/uL (0.00-0.10); Basophils % (A) 0.7 %; Eosinophils # (A) 0.42 X 10*3/uL (0.04-0.35); Eosinophils % (A) 3.1 %; HCT 38.6 % (39.6-50.0); HGB 13.1 g/dL (13.0-17.0); Lymphocytes # (A) 1.98 X 10*3/uL (0.90-5.00); Lymphocytes % (A) 14.5 %; MCH 34.1 pg (27.0-32.0); MCHC 33.9 g/dL (32.0-37.0); MCV 100.5 FL (80.0-97.0); Mean Platelet Volume 10.7 FL (9.5-12.2); Monocytes # (A) 1.29 X 10*3/uL (0.20-1.00); Monocytes % (A) 9.5 %; NRBC Per 100 WBC 0 X 10*3/uL (0.00-0.01); Neutrophils # (A) 9.79 X 10*3/uL (1.80-7.70); Neutrophils % (A) 71.7 %; Platelet Count 184 X 10*3/uL (140-440); RBC 3.84 X 10*6/uL (4.40-5.60); RDW 12.8 % (11.5-14.5); WBC 13.64 X 10*3/uL (4.50-10.00)
[2023-11-24] MEDS: NICOTINE 21MG/24HR PATCH TRANSDERM SCH (09:23)
[2023-11-24] MEDS: ENOXAPARIN 40 MG/0.4 ML SYRINGE SQ SCH (09:23)
[2023-11-24] MEDS: ASPIRIN 81 MG PO SCH ×2 (09:24→12:59)
[2023-11-24] MEDS: NAPROXEN 250 MG TAB PO SCH ×3 (09:27→20:15)
[2023-11-24] MEDS: carvediloL 6.25 MG TAB PO SCH ×2 (09:30→16:26)
[2023-11-24 09:38] LABS: BUN/Creat Ratio 8.89 Ratio (12.00-20.00); Calcium 8.5 mg/dL (8.7-10.3); Carbon Dioxide 22.1 mmol/L (21.6-31.8); Chloride 108 mmol/L (96-109); Glucose 101 mg/dL (70-110); Potassium 3.9 mmol/L (3.5-5.5); Sodium 140 mmol/L (135-145)
[2023-11-24] MEDS: IPRATROPIUM-ALBUTEROL 3 ML NEB INHALATION SCH ×3 (09:50→21:08)
--- NOTE | 2023-11-24 10:09 | P.PN ---
Subjective Progress Note Date: 11/24/23 Principal diagnosis: Left thumb/hand celllulitis The patient is a 58 y/o male with a past medical history including hypertension and nicotine dependence who presented to the emergency department at [facility] with a left hand infection. He was transferred from an outside hospital for further evaluation and care by orthopedic hand surgery. He was started on Unasyn on arrival. He states his left thumb was caught by his dog's tooth while at the vet's office on 11/19/2023. Initially, he cleansed the wound and it was looking ok but they started to become swollen over the weekend. He noticed redness in his volar wrist and forearm, he went to the ER for further care. Infected tenosynovitis was suspected and orthopedics was consulted. He was found to be very hypertensive in the ER and cardiology has been consulted. Today, the patient states the redness and swelling in his hand is improving. His thumb is stiff but is improving as well. There is minimal serosanginous drainage from the left thumb wound at this time. He states he feels fine, denies fever and chills. The patient's pain is very controlled and tolerable at this time. Objective - Vital Signs Vital signs: Vital Signs Temp 98.3 F 11/24/23 07:29 Pulse 81 11/24/23 07:29 Resp 18 11/24/23 07:29 BP 178/111 11/24/23 07:29 Pulse Ox 96 11/24/23 07:29 FiO2 Intake & Output 11/23/23 11/24/23 11/24/23 18:59 06:59 18:59 Intake Total 700 Balance 700 Weight 124.738 kg Intake: Intake, IV Titration 700 Amount Ampicillin-Sulbactam 3 gm 100 In Sodium Chloride 0.9% 100 ml @ 200 mls/hr IVPB Q6H [facility] Rx#:[id number] Sodium Chloride 0.9% 1, 600 000 ml @ 50 mls/hr IV . Q20H [facility] Rx#:[id number] Other: Voiding Method Toilet # Voids 0 3 - Exam The patient is a 58 y/o male in no acute distress. He is alert and oriented x3. Exam of the left hand reveals improved swelling and erythema to the left thumb. There is a scabbed wound on the volar surface of the thumb at the proximal phalanx level. No minimal serosanginous drainage at this time. No point tenderness to the FPL tendon into the carpal tunnel and wrist. No stretch pain to the thumb. No abscess or fluid collection palpable. There is demarcated erythema into the mid forearm with swelling. No stretch pain to the other fingers. Neurological and circulatory status is intact. - Labs CBC & Chem 7: 11/24/23 06:06 11/24/23 06:06 Labs: Abnormal Lab Results - Last 24 Hours (Table) 11/23/23 11/23/23 11/24/23 Range/Units 09:14 11:53 06:06 WBC 13.64 H (4.50-10.00) X 10*3/uL RBC 3.84 L (4.40-5.60) X 10*6/uL Hct 38.6 L (39.6-50.0) % MCV 100.5 H (80.0-97.0) FL MCH 34.1 H (27.0-32.0) pg Immature Gran # 0.07 H (0.00-0.04) X 10*3/uL Neutrophils # 9.79 H (1.80-7.70) X 10*3/uL Monocytes # 1.29 H (0.20-1.00) X 10*3/uL Eosinophils # 0.42 H (0.04-0.35) X 10*3/uL BUN (9.0-27.0) mg/dL BUN/Creatinine Ratio (12.00-20.00) Ratio Calcium (8.7-10.3) mg/dL Troponin I 0.043 H* 0.040 H* (0.000-0.034) ng/mL C-Reactive Protein (0.00-0.80) mg/dL 11/24/23 Range/Units 06:06 WBC (4.50-10.00) X 10*3/uL RBC (4.40-5.60) X 10*6/uL Hct (39.6-50.0) % MCV (80.0-97.0) FL MCH (27.0-32.0) pg Immature Gran # (0.00-0.04) X 10*3/uL Neutrophils # (1.80-7.70) X 10*3/uL Monocytes # (0.20-1.00) X 10*3/uL Eosinophils # (0.04-0.35) X 10*3/uL BUN 8.0 L (9.0-27.0) mg/dL BUN/Creatinine Ratio 8.89 L (12.00-20.00) Ratio Calcium 8.5 L (8.7-10.3) mg/dL Troponin I (0.000-0.034) ng/mL C-Reactive Protein 25.20 H (0.00-0.80) mg/dL Assessment and Plan (1) Cellulitis of left hand Current Visit: Yes Status: Acute Code(s): L03.114 - CELLULITIS OF LEFT UPPER LIMB SNOMED Code(s): 17256705476987273 (2) Dog bite Current Visit: Yes Status: Acute Code(s): W54.0XXA - BITTEN BY DOG, INITIAL ENCOUNTER SNOMED Code(s): 844614462 (3) Hypertension, accelerated Current Visit: Yes Status: Acute Code(s): I10 - ESSENTIAL (PRIMARY) HYPERT ENSION SNOMED Code(s): 55692944 (4) Tobacco abuse Current Visit: Yes Status: Acute Code(s): Z72.0 - TOBACCO USE SNOMED Code(s): 064874846 Plan: The clinical and x-ray findings were discussed with the patient at the bedside today. The case was discussed at length with Dr. Garcia. There does not appear to be any fluid collection or abscess to the thumb at this time. No infected flexor tenosynovitis is suspected either. Continue IV antibiotics for infectious disease. No surgical interventions is planned at this time. We will continue to follow the patient closely.
--- NOTE | 2023-11-24 10:50 | P.PN ---
Subjective HISTORY OF PRESENT ILLNESS: This is a 58 year old male with a past medical history significant for hypertension and nicotine dependence. Patient does not follow with a fireworks maker. We have been asked to see the patient in consultation for hyper tension. Patient examined at the bedside in the ER. Patient initially presented to [facility] due to an infection in his left hand after sustaining a dog bite. Patient was found to have significantly elevated blood pressures with a systolic over 200 and he was transferred to [facility] for further evaluation. The patient was initially started on a Cardene drip. This has subsequently been discontinued. His most recent blood pressure is 159/92. Patient's family is at the bedside and states the patient does have a history of hypertension and was previously prescribed antihypertensive medications but he stopped taking these. He currently denies any chest pain or pressure. He denies any shortness of breath. He states that he walks about 15,000 steps a day without any issues. He is a current cigarette smoker and smokes 1 and half packs per day. DIAGNOSTICS: - EKG reveals T wave inversions in inferolateral leads. LVH. - Laboratory data: WBC 18.9. Hemoglobin 14.5. Platelet count 207. Sodium 137. Potassium 4.1. BUN 7. Creatinine 0.85. Lactic acid 1.7. Troponin 0.037. 0.043. - Current home cardiac medications include none - Most recent echocardiogram obtained in 2018 revealed ejection fraction 55 to 60%, moderate LVH - Cardiac catheterization history: Patient denies November 24, 2023 Patient examined this morning at the bedside. Patient denies chest pain or pressure. He denies shortness of breath. Blood pressure remains elevated this morning with a reading of 178/111. Echocardiogram completed revealing ejection fraction 55 to 60%, mild to moderate LVH, mild to moderate MR, mild TR. PHYSICAL EXAM: VITAL SIGNS: Reviewed. GENERAL: Well-developed in no acute distress. HEENT: Head is normocephalic. Pupils are equal, round. Sclerae anicteric. Mucous membranes of the mouth are moist. Neck supple. No JVD or thyromegaly LUNGS: Respirations even and unlabored. Lungs essentially clear to auscultation bilaterally. HEART: Regular rate and rhythm. S1 and S2 heard. ABDOMEN: Soft. Nondistended. Nontender. EXTREMITIES: Normal range of motion. No clubbing or cyanosis. Peripheral pulses intact. No lower extremity edema. Erythema and swelling noted to left hand. NEUROLOGIC: Awake and alert. Oriented x 3. ASSESSMENT: Left hand infection, status post dog bite Leukocytosis Hypertensive emergency, improved Abnormal troponins, flat, likely secondary to uncontrolled blood pressures and infectious process History of hypertension, not on antihypertensive medications outpatient Nicotine dependence, patient smokes 1.5 packs/day Obesity: BMI 35.3 History of medication noncompliance PLAN: Discontinue oral Cardizem started by internal medicine Begin carvedilol 6.25 mg twice a day Increase losartan to 50 mg daily Continue aspirin and atorvastatin Patient is stable for discharge home from a cardiac standpoint Patient is to follow-up on an outpatient basis with Dr. Boland We will plan for outpatient stress testing once patient's blood pressure is well-controlled Nurse practitioner note has been reviewed by physician. Signing provider agrees with the documented findings, assessment, and plan of care documented by LINK KNITTING MACHINE OPERATOR as a scribe. Objective - Vital Signs Vital signs: Vital Signs Temp 98.3 F 11/24/23 07:29 Pulse 81 11/24/23 07:29 Resp 18 11/24/23 07:29 BP 178/111 11/24/23 07:29 Pulse Ox 96 11/24/23 07:29 FiO2 Intake & Output 11/23/23 11/24/23 11/24/23 18:59 06:59 18:59 Intake Total 700 Balance 700 Weight 124.738 kg Intake: Intake, IV Titration 700 Amount Ampicillin-Sulbactam 3 gm 100 In Sodium Chloride 0.9% 100 ml @ 200 mls/hr IVPB Q6H [facility] Rx#:[id number] Sodium Chloride 0.9% 1, 600 000 ml @ 50 mls/hr IV . Q20H [facility] Rx#:[id number] Other: Voiding Method Toilet # Voids 0 3 - Labs CBC & Chem 7: 11/24/23 06:06 11/24/23 06:06 Labs: Abnormal Lab Results - Last 24 Hours (Table) 11/23/23 11/24/23 11/24/23 Range/Units 11:53 06:06 06:06 WBC 13.64 H (4.50-10.00) X 10*3/uL RBC 3.84 L (4.40-5.60) X 10*6/uL Hct 38.6 L (39.6-50.0) % MCV 100.5 H (80.0-97.0) FL MCH 34.1 H (27.0-32.0) pg Immature Gran # 0.07 H (0.00-0.04) X 10*3/uL Neutrophils # 9.79 H (1.80-7.70) X 10*3/uL Monocytes # 1.29 H (0.20-1.00) X 10*3/uL Eosinophils # 0.42 H (0.04-0.35) X 10*3/uL BUN 8.0 L (9.0-27.0) mg/dL BUN/Creatinine Ratio 8.89 L (12.00-20.00) Ratio Calcium 8.5 L (8.7-10.3) mg/dL Troponin I 0.040 H* (0.000-0.034) ng/mL C-Reactive Protein 25.20 H (0.00-0.80) mg/dL
--- NOTE | 2023-11-24 11:05 | P.PN ---
Progress Note - Text Progress Note Date: 11/24/23 Chief Complaint: Dog bite This is a pleasant 58-year-old patient who follows with Dr. Matos. In fact has not followed up for quite some time. Patient has been prescribed medication for hypertension and ran out of his insurance changed his job and never took medications again. Yesterday taken his pitbull dog which she has had for 5 years down to the operators teacher. To get his ear checked out. The dog was per anesthesia but they realized that the dog is actually not fully under. He tried to pet the dog down. While the dog was still a bit confused and it bit his left thumb. Patient then went down to [facility]. He was noted to have a blood pressure over 220 systolic. Also some EKG changes. He was felt to have flexor tenosynovitis as he was sent down here for orthopedic. The hand become painful and swollen. And some limitation of movement of his fingers. He had a white count of 18.4 started on Unasyn. Patient was put on Cardizem infusion and was transferred here. It does not seem that patient was given a tetanus shot at [facility]. Patient denies any chest pain. Being a smoker patient is at baseline has some wheezing and cough. The pitbull dog is held all his immunizations. November 24: Resting in bed. Some improvement in range of motion around the thumb and index finger able to make a better fist. No fever no chills. Getting IV Unasyn. Naproxen. Pain is better. Seen by orthopedics Dr. Lars Garcia. Patient does not have any flexor tenosynovitis. Per cardiology Cardizem discontinued started on Coreg. Active Medications Acetaminophen (Acetaminophen Tab 325 Mg Tab) 650 mg PO Q6HR PRN PRN Reason: Mild Pain or Fever > 100.5 Albuterol/Ipratropium (Ipratropium-Albuterol 3 Ml Neb) 3 ml INHALATION RT-TID [facility] Last Admin: 11/24/23 09:50 Dose: Not Given Alprazolam (Alprazolam 0.25 Mg Tab) 0.25 mg PO Q6HR PRN PRN Reason: Anxiety Aspirin (Aspirin 81 Mg) 81 mg PO DAILY [facility] Last Admin: 11/24/23 09:24 Dose: Not Given Atorvastatin Calcium (Atorvastatin 40 Mg Tab) 40 mg PO HS [facility] Last Admin: 11/23/23 20:22 Dose: 40 mg Calcium Carbonate/Glycine (Calcium Carbonate 500 Mg Chewable) 1,000 mg PO Q4HR PRN PRN Reason: Dyspepsia Carvedilol (Carvedilol 6.25 Mg Tab) 6.25 mg PO BID-W/MEALS [facility] Last Admin: 11/24/23 09:30 Dose: 6.25 mg Enoxaparin Sodium (Enoxaparin 40 Mg/0.4 Ml Syringe) 40 mg SQ DAILY [facility] Last Admin: 11/24/23 09:23 Dose: 40 mg Sodium Chloride (Saline 0.9%) 1,000 mls @ 10 mls/hr IV .Q24H [facility] Last Admin: 11/24/23 03:59 Dose: 50 mls/hr Ampicillin Sodium/Sulbactam (Sodium 3 gm/ Sodium Chloride) 100 mls @ 200 mls/hr IVPB Q6H [facility]; Protocol Last Admin: 11/24/23 09:26 Dose: 200 mls/hr Lactulose (Lactulose 20 Gm/30 Ml Cup) 20 gm PO DAILY PRN PRN Reason: Constipation Losartan Potassium (Losartan 50 Mg Tab) 50 mg PO DAILY [facility] Last Admin: 11/24/23 09:30 Dose: 50 mg Morphine Sulfate (Morphine Sulfate 4 Mg/Ml Syringe) 4 mg IV Q4HR PRN PRN Reason: Severe Pain (Scale 7 to 10) Naloxone HCl (Naloxone 0.4 Mg/Ml 1 Ml Vial) 0.2 mg IV Q2M PRN PRN Reason: Opioid Reversal Naproxen (Naproxen 250 Mg Tab) 250 mg PO TID [facility] Last Admin: 11/24/23 09:27 Dose: 250 mg Nicotine (Nicotine 21mg/24hr Patch) 1 patch TRANSDERM DAILY [facility] Last Admin: 11/24/23 09:23 Dose: 1 patch Ondansetron HCl (Ondansetron 4 Mg/2 Ml Vial) 4 mg IVP Q8HR PRN PRN Reason: Nausea And Vomiting Temazepam (Temazepam 15 Mg Cap) 15 mg PO HS PRN PRN Reason: Insomnia Social history: Patient lives with his girlfriend Amirah. 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 Smokes a pack and a day for close to 40 years. Drinks 6 pack beer a night. Does marijuana. Physical examination: VITAL SIGNS: 98.3, 81, 18, 178/101, 96% room air GENERAL: BMI 35.3, laying in bed awake not in distress. EYES: Pupils equal. Conjunctiva aditi l. HEENT: External appearance of nose and ears normal, oral cavity grossly normal. NECK: JVD not raised; masses not palpable. HEART: First and second heart sounds are normal; no edema. LUNGS: Respiratory rate normal; decreased breath sounds some wheezing. ABDOMEN: Soft, nontender, liver spleen not palpable, no masses palpable. PSYCH: Alert and oriented x3; mood and affect aditi l. MUSCULOSKELETAL:No Clubbing/cyanosis;muscles-grossly intact. Left hand. Bite sven of the left thumb. Decreased swelling redness of the left hand which also extends into the forearm. Improving range of motion. INVESTIGATIONS, reviewed in the clinical context: November 24: White count 13.6 hemoglobin 13.1 potassium 3.9 creatinine 0.9 November 23: White count 18.9 hemoglobin 14.5 platelets 207 sodium 137 potassium 4.1 creatinine 0.85 Troponin I 0.037, 0.043, 0.040 LDL 59.4 EKG tracing personally reviewed by me-[from Omar] sinus rhythm. ST-T waves depression left and inferolateral leads. 2D echocardiogram EF 55 to 60%. Moderate concentric LVH Chest x-ray film personally reviewed by me-some hyperinflation Assessment and plan: -Accelerated hypertension. Patient has a prior history of hypertension was not taking any medications. Now presenting with a blood pressure of 240 systolic. Had to be put on a Cardizem drip.: Slow to respond Also positive troponin. Cozaar increased to 50 mg a day.. Per cardiology Cardizem discontinued. Started on Coreg. - Troponin leak from uncontrolled blood pressure -COPD-current smoker DuoNeb 3 times daily -Chronic nicotine dependence cigarette smoker Nicotine patch 21 -Hypertensive heart disease Coreg. Cozaar increased to 50 mg a day. -Obesity BMI 35.3 Weight loss measures -Dog bite with infected left thumb and surrounding area of the hand.: Improving Seen by Dr. Lars Garcia: Does not felt to have any tenosynovitis. . Tetanus shot. IV Unasyn. Keep left arm elevated. Discussed. Increase activity. Past Medical History Past Medical History: Hypertension Additional Past Medical History / Comment(s): hernia History of Any Multi-Drug Resistant Organisms: None Reported Past Surgical History: No Surgical Hx Reported Smoking Status: Current every day smoker Past Alcohol Use History: Daily Past Drug Use History: Marijuana
[2023-11-24] MEDS: ATORVASTATIN 40 MG TAB PO SCH (20:15)
--- NOTE | 2023-11-24 23:11 | P.PN ---
Subjective Progress Note Date: 11/24/23 Principal diagnosis: Reason for follow-up is left thumb and forearm dog bite cellulitis Patient is a 66-year-old male with a past medical his significant for hypertension current everyday smoker apparently has been bitten of his left thumb by his dog while he was at the vet office on , 11/19/2023, patient is a 3 developing significant swelling and redness to the thumb and the left forearm for the patient present to the hospital. On today's evaluation that is 11/24/2023 patient denies having any fever or any chills patient is breathing comfortably on room air denies any chest pain shortness with or cough no nausea vomiting no abdominal pain or diarrhea patient oral pain and discomfort to the thumb and the forearm has decreased redness has decreased as well did have minimal purulent drainage from the thumb. Patient white count is down to 13.64, creatinine 0.9 CRP 25.2 blood cultures done at the outside facility came back positive with gram-negative rods Objective - Vital Signs Vital signs: Vital Signs Temp 97.9 F 11/24/23 12:04 Pulse 78 11/24/23 12:04 Resp 18 11/24/23 12:04 BP 180/110 11/24/23 12:04 Pulse Ox 96 11/24/23 12:32 FiO2 21 11/24/23 12:32 Intake & Output 11/23/23 11/24/23 11/24/23 18:59 06:59 18:59 Intake Total 700 Balance 700 Weight 124.738 kg Intake: Intake, IV Titration 700 Amount Ampicillin-Sulbactam 3 gm 100 In Sodium Chloride 0.9% 100 ml @ 200 mls/hr IVPB Q6H [facility] Rx#:[id number] Sodium Chloride 0.9% 1, 600 000 ml @ 50 mls/hr IV . Q20H [facility] Rx#:[id number] Other: Voiding Method Toilet Toilet # Voids 0 3 - Exam GENERAL DESCRIPTION: Middle-age male lying in bed in no distress RESPIRATORY SYSTEM: Unlabored breathing , decreased breath sounds at bases HEART: S1 S2 regular rate and rhythm , ABDOMEN: Soft , no tenderness EXTREMITIES: left thumb did have some purulent drainage has been cultured overall redness to the left forearm has decreased in intensity - Labs CBC & Chem 7: 11/24/23 06:06 11/24/23 06:06 Labs: Abnormal Lab Results - Last 24 Hours (Table) 11/24/23 11/24/23 Range/Units 06:06 06:06 WBC 13.64 H (4.50-10.00) X 10*3/uL RBC 3.84 L (4.40-5.60) X 10*6/uL Hct 38.6 L (39.6-50.0) % MCV 100.5 H (80.0-97.0) FL MCH 34.1 H (27.0-32.0) pg Immature Gran # 0.07 H (0.00-0.04) X 10*3/uL Neutrophils # 9.79 H (1.80-7.70) X 10*3/uL Monocytes # 1.29 H (0.20-1.00) X 10*3/uL Eosinophils # 0.42 H (0.04-0.35) X 10*3/uL BUN 8.0 L (9.0-27.0) mg/dL BUN/Creatinine Ratio 8.89 L (12.00-20.00) Ratio Calcium 8.5 L (8.7-10.3) mg/dL C-Reactive Protein 25.20 H (0.00-0.80) mg/dL Microbiology - Last 24 Hours (Table) 11/23/23 02:00 Blood Culture - Preliminary Blood 11/23/23 02:15 Blood Culture - Preliminary Blood Assessment and Plan (1) Gram-negative bacteremia Current Visit: Yes Status: Acute Code(s): R78.81 - BACTEREMIA SNOMED Code(s): 992593377677 (2) Cellulitis of left hand Current Visit: Yes Status: Acute Code(s): L03.114 - CELLULITIS OF LEFT UPPER LIMB SNOMED Code(s): 43989567628295259 (3) Dog bite Current Visit: Yes Status: Acute Code(s): W54.0XXA - BITTEN BY DOG, INITIAL ENCOUNTER SNOMED Code(s): 159286234 Plan: 1patient presented to hospital with left thumb and left upper extremity cellulitis started with a dog bite to the left thumb area we will need to cover for the polymicrobial aiden usually associated with dog bite infection [id number] bacteremia source likely left thumb abscess and forearm cellulitis 3patient to continue with-Unasyn 3 g every 6 hours while waiting for the culture to finalize Dictation was produced using Sidewalk dictation software. please excuse any grammatical, word or spelling errors. Time with Patient: Less than 30
[2023-11-25] MEDS ORDERED: LOSARTAN 50 MG TAB PO ONE (02:15)
[2023-11-25] MEDS: AMPICILLIN-SULBACTAM 3 GM in SODIUM CHLORIDE 0.9% 100 ML IVPB SCH ×4 (04:00→21:39)
[2023-11-25] MEDS: SODIUM CHLORIDE 0.9% 1,000 ML IV SCH (04:02)
[2023-11-25] MEDS: IPRATROPIUM-ALBUTEROL 3 ML NEB INHALATION SCH ×3 (07:55→20:10)
[2023-11-25] MEDS: ASPIRIN 81 MG PO SCH (08:28)
[2023-11-25] MEDS: NAPROXEN 250 MG TAB PO SCH ×3 (08:29→21:40)
[2023-11-25] MEDS: LOSARTAN 50 MG TAB PO SCH ×2 (08:33→20:32)
[2023-11-25] MEDS: ENOXAPARIN 40 MG/0.4 ML SYRINGE SQ SCH (08:33)
[2023-11-25] MEDS: carvediloL 12.5 MG TAB PO SCH ×2 (08:33→15:46)
[2023-11-25] MEDS: NICOTINE 21MG/24HR PATCH TRANSDERM SCH (08:34)
[2023-11-25] MEDS: hydroCHLOROthiazide 25 MG TAB PO SCH (09:52)
--- NOTE | 2023-11-25 09:55 | P.PN ---
Subjective HISTORY OF PRESENT ILLNESS: This is a 58 year old male with a past medical history significant for hypertension and nicotine dependence. Patient does not follow with a restaurant operations manager. We have been asked to see the patient in consultation for hyper tension. Patient examined at the bedside in the ER. Patient initially presented to [facility] due to an infection in his left hand after sustaining a dog bite. Patient was found to have significantly elevated blood pressures with a systolic over 200 and he was transferred to [facility] for further evaluation. The patient was initially started on a Cardene drip. This has subsequently been discontinued. His most recent blood pressure is 159/92. Patient's family is at the bedside and states the patient does have a history of hypertension and was previously prescribed antihypertensive medications but he stopped taking these. He currently denies any chest pain or pressure. He denies any shortness of breath. He states that he walks about 15,000 steps a day without any issues. He is a current cigarette smoker and smokes 1 and half packs per day. DIAGNOSTICS: - EKG reveals T wave inversions in inferolateral leads. LVH. - Laboratory data: WBC 18.9. Hemoglobin 14.5. Platelet count 207. Sodium 137. Potassium 4.1. BUN 7. Creatinine 0.85. Lactic acid 1.7. Troponin 0.037. 0.043. - Current home cardiac medications include none - Most recent echocardiogram obtained in 2018 revealed ejection fraction 55 to 60%, moderate LVH - Cardiac catheterization history: Patient denies November 24, 2023 Patient examined this morning at the bedside. Patient denies chest pain or pressure. He denies shortness of breath. Blood pressure remains elevated this morning with a reading of 178/111. Echocardiogram completed revealing ejection fraction 55 to 60%, mild to moderate LVH, mild to moderate MR, mild TR. November 25, 2023 Patient examined this morning at the bedside. Patient denies chest pain or pressure. He denies shortness of breath. Blood pressure this morning is elevated at 206/104. Patient's carvedilol and losartan have been increased. PHYSICAL EXAM: VITAL SIGNS: Reviewed. GENERAL: Well-developed in no acute distress. HEENT: Head is normocephalic. Pupils are equal, round. Sclerae anicteric. Mucous membranes of the mouth are moist. Neck supple. No JVD or thyromegaly LUNGS: Respirations even and unlabored. Lungs essentially clear to auscultation bilaterally. HEART: Regular rate and rhythm. S1 and S2 heard. ABDOMEN: Soft. Nondistended. Nontender. EXTREMITIES: Normal range of motion. No clubbing or cyanosis. Peripheral pulses intact. No lower extremity edema. Erythema and swelling noted to left hand. NEUROLOGIC: Awake and alert. Oriented x 3. ASSESSMENT: Left hand infection, status post dog bite Leukocytosis Hypertensive emergency, improved Abnormal troponins, flat, likely secondary to uncontrolled blood pressures and infectious process History of hypertension, not on antihypertensive medications outpatient Nicotine dependence, patient smokes 1.5 packs/day Obesity: BMI 35.3 History of medication noncompliance PLAN: Carvedilol has been increased to 12.5 mg twice a day Losartan has been increased to 50 mg twice a day Add hydrochlorothiazide 25 mg daily Continue aspirin and atorvastatin Patient educated on blood pressure management. Reinforced to patient that it may take some time to get his blood pressure under control. Patient verbalized understanding. Patient encouraged to keep a log of his blood pressures at home and bring them with him to his follow-up appointment. Patient is stable for discharge home from a cardiac standpoint Patient is to follow-up on an outpatient basis with Dr. Boland We will plan for outpatient stress testing once patient's blood pressure is well-controlled Nurse practitioner note has been reviewed by physician. Signing provider agrees with the documented findings, assessment, and plan of care documented by FISH HATCHERY LABORER as a scribe. Objective - Vital Signs Vital signs: Vital Signs Temp 98.8 F 11/25/23 07:35 Pulse 87 11/25/23 07:35 Resp 18 11/25/23 07:35 BP 206/104 11/25/23 07:35 Pulse Ox 96 11/25/23 07:35 FiO2 21 11/24/23 12:32 Intake & Output 11/24/23 11/25/23 11/25/23 18:59 06:59 18:59 Intake Total 200 240 Balance 200 240 Intake: Intake, IV Titration 200 Amount Ampicillin-Sulbactam 3 gm 200 In Sodium Chloride 0.9% 100 ml @ 200 mls/hr IVPB Q6H [facility] Rx#:[id number] Oral 240 Other: Voiding Method Toilet Toilet # Voids 3 - Labs CBC & Chem 7: 11/24/23 06:06 11/24/23 06:06 Labs: Microbiology - Last 24 Hours (Table) 11/24/23 11:10 Gram Stain - Preliminary Hand - Left 11/23/23 02:00 Blood Culture - Preliminary Blood 11/23/23 02:15 Blood Culture - Preliminary Blood
--- NOTE | 2023-11-25 12:59 | P.PN ---
Subjective Progress Note Date: 11/25/23 Principal diagnosis: Left thumb/hand celllulitis The patient is a 58 y/o male with a past medical history including hypertension and nicotine dependence who presented to the emergency department at [facility] with a left hand infection. He was transferred from an outside hospital for further evaluation and care by orthopedic hand surgery. He was started on Unasyn on arrival. He states his left thumb was caught by his dog's tooth while at the vet's office on 11/19/2023. Initially, he cleansed the wound and it was looking ok but they started to become swollen over the weekend. He noticed redness in his volar wrist and forearm, he went to the ER for further care. Infected tenosynovitis was suspected and orthopedics was consulted. He was found to be very hypertensive in the ER and cardiology has been consulted. Today, the patient states the redness and swelling in his hand continues to improve. His thumb is stiff but is improving as well. There is minimal serosanginous drainage from the left thumb wound at this time. He states he feels fine, denies fever and chills. The patient's pain is very controlled and tolerable at this time. Objective - Vital Signs Vital signs: Vital Signs Temp 98.8 F 11/25/23 07:35 Pulse 87 11/25/23 08:00 Resp 18 11/25/23 08:00 BP 162/88 11/25/23 11:35 Pulse Ox 96 11/25/23 07:35 FiO2 21 11/24/23 12:32 Intake & Output 11/24/23 11/25/23 11/25/23 18:59 06:59 18:59 Intake Total 200 240 Balance 200 240 Intake: Intake, IV Titration 200 Amount Ampicillin-Sulbactam 3 gm 200 In Sodium Chloride 0.9% 100 ml @ 200 mls/hr IVPB Q6H [facility] Rx#:[id number] Oral 240 Other: Voiding Method Toilet Toilet Toilet # Voids 3 - Exam The patient is a 58 y/o male in no acute distress. He is alert and oriented x3. Exam of the left hand reveals improved swelling and erythema to the left thumb. There is a scabbed wound on the volar surface of the thumb at the proximal phalanx level. Minimal serosanginous drainage at this time. No point tenderness to the FPL tendon into the carpal tunnel and wrist. No stretch pain to the thumb. No abscess or fluid collection palpable. No stretch pain to the other fingers. Neurological and circulatory status is intact. - Labs CBC & Chem 7: 11/24/23 06:06 11/24/23 06:06 Labs: Microbiology - Last 24 Hours (Table) 11/24/23 11:10 Gram Stain - Preliminary Hand - Left 11/23/23 02:00 Blood Culture - Preliminary Blood 11/23/23 02:15 Blood Culture - Preliminary Blood Assessment and Plan (1) Cellulitis of left hand Current Visit: Yes Status: Acute Code(s): L03.114 - CELLULITIS OF LEFT UPPER LIMB SNOMED Code(s): 55560733418650607 (2) Dog bite Current Visit: Yes Status: Acute Code(s): W54.0XXA - BITTEN BY DOG, INITIAL ENCOUNTER SNOMED Code(s): 596365990 (3) Hypertension, accelerated Current Visit: Yes Status: Acute Code(s): I10 - ESSENTIAL (PRIMARY) HYPERTENSION SNOMED Code(s): 44420253 (4) Tobacco abuse Current Visit: Yes Status: Acute Code(s): Z72.0 - TOBACCO USE SNOMED Code(s): 941976290 Plan: The clinical and x-ray findings were discussed with the patient at the bedside today. The case was discussed at length with Dr. Garcia. There does not appear to be any fluid collection or abscess to the thumb at this time. No infected flexor tenosynovitis is suspected either. Continue IV antibiotics for infectious disease. No surgical intervention is planned at this time. We will sign off at this time. He may follow up with us as needed.
[2023-11-25] MEDS: ALPRAZolam 0.25 MG TAB PO PRN (17:38)
--- NOTE | 2023-11-25 19:10 | P.PN ---
Progress Note - Text Progress Note Date: 11/25/23 Chief Complaint: Dog bite This is a pleasant 58-year-old patient who follows with Dr. Matos. In fact has not followed up for quite some time. Patient has been prescribed medication for hypertension and ran out of his insurance changed his job and never took medications again. Yesterday taken his pitbull dog which she has had for 5 years down to the rn family. To get his ear checked out. The dog was per anesthesia but they realized that the dog is actually not fully under. He tried to pet the dog down. While the dog was still a bit confused and it bit his left thumb. Patient then went down to [facility]. He was noted to have a blood pressure over 220 systolic. Also some EKG changes. He was felt to have flexor tenosynovitis as he was sent down here for orthopedic. The hand become painful and swollen. And some limitation of movement of his fingers. He had a white count of 18.4 started on Unasyn. Patient was put on Cardizem infusion and was transferred here. It does not seem that patient was given a tetanus shot at [facility]. Patient denies any chest pain. Being a smoker patient is at baseline has some wheezing and cough. The pitbull dog is held all his immunizations. November 24: Resting in bed. Some improvement in range of motion around the thumb and index finger able to make a better fist. No fever no chills. Getting IV Unasyn. Naproxen. Pain is better. Seen by orthopedics Dr. Lars Garcia. Patient does not have any flexor tenosynovitis. Per cardiology Cardizem discontinued started on Coreg. November 25: Pain swelling redness of the left thumb is coming down. Movements are improved. ID Dr. Patel got a call from the outside hospital that blood culture positive for gram-negative rods. Repeat blood cultures have been ordered. Overall patient is feeling better. Blood pressure was over 200 systolic. This morning. Cozaar was increased to 50 mg twice daily and Coreg was changed to 12.5 mg twice daily. Patient on IV Unasyn. Active Medications Acetaminophen (Acetaminophen Tab 325 Mg Tab) 650 mg PO Q6HR PRN PRN Reason: Mild Pain or Fever > 100.5 Albuterol/Ipratropium (Ipratropium-Albuterol 3 Ml Neb) 3 ml INHALATION RT-TID [facility] Last Admin: 11/25/23 11:11 Dose: Not Given Alprazolam (Alprazolam 0.25 Mg Tab) 0.25 mg PO Q6HR PRN PRN Reason: Anxiety Last Admin: 11/25/23 17:38 Dose: 0.25 mg Aspirin (Aspirin 81 Mg) 81 mg PO DAILY [facility] Last Admin: 11/25/23 08:28 Dose: 81 mg Atorvastatin Calcium (Atorvastatin 40 Mg Tab) 40 mg PO HS [facility] Last Admin: 11/24/23 20:15 Dose: 40 mg Calcium Carbonate/Glycine (Calcium Carbonate 500 Mg Chewable) 1,000 mg PO Q4HR PRN PRN Reason: Dyspepsia Carvedilol (Carvedilol 12.5 Mg Tab) 12.5 mg PO BID-W/MEALS [facility] Last Admin: 11/25/23 15:46 Dose: 12.5 mg Enoxaparin Sodium (Enoxaparin 40 Mg/0.4 Ml Syringe) 40 mg SQ DAILY [facility] Last Admin: 11/25/23 08:33 Dose: 40 mg Hydrochlorothiazide (Hydrochlorothiazide 25 Mg Tab) 25 mg PO DAILY [facility] Last Admin: 11/25/23 09:52 Dose: 25 mg Sodium Chloride (Saline 0.9%) 1,000 mls @ 10 mls/hr IV .Q24H [facility] Last Admin: 11/25/23 04:02 Dose: 10 mls/hr Ampicillin Sodium/Sulbactam (Sodium 3 gm/ Sodium Chloride) 100 mls @ 200 mls/hr IVPB Q6H [facility]; Protocol Last Admin: 11/25/23 15:47 Dose: 200 mls/hr Lactulose (Lactulose 20 Gm/30 Ml Cup) 20 gm PO DAILY PRN PRN Reason: Constipation Losartan Potassium (Losartan 50 Mg Tab) 50 mg PO BID [facility] Last Admin: 11/25/23 08:33 Dose: 50 mg Morphine Sulfate (Morphine Sulfate 4 Mg/Ml Syringe) 4 mg IV Q4HR PRN PRN Reason: Severe Pain (Scale 7 to 10) Naloxone HCl (Naloxone 0.4 Mg/Ml 1 Ml Vial) 0.2 mg IV Q2M PRN PRN Reason: Opioid Reversal Naproxen (Naproxen 250 Mg Tab) 250 mg PO TID [facility] Last Admin: 11/25/23 15:46 Dose: 250 mg Nicotine (Nicotine 21mg/24hr Patch) 1 patch TRANSDERM DAILY [facility] Last Admin: 11/25/23 08:34 Dose: 1 patch Ondansetron HCl (Ondansetron 4 Mg/2 Ml Vial) 4 mg IVP Q8HR PRN PRN Reason: Nausea And Vomiting Temazepam (Temazepam 15 Mg Cap) 15 mg PO HS PRN PRN Reason: Insomnia Social history: Patient lives with his girlfriend Amirah. 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 Smokes a pack and a day for close to 40 years. Drinks 6 pack beer a night. Does marijuana. Physical examination: VITAL SIGNS: 98.4, 78, 16, 162/88, 95% room air GENERAL: Sitting on edge of bed, awake comfortable. EYES: Pupils equal. Conjunctiva aditi l. HEENT: External appearance of nose and ears normal, oral cavity grossly normal. NECK: JVD not raised; masses not palpable. HEART: First and second heart sounds are normal; no edema. LUNGS: Respiratory rate normal; decreased breath sounds some wheezing. ABDOMEN: Soft, nontender, liver spleen not palpable, no masses palpable. PSYCH: Alert and oriented x3; mood and affect aditi l. MUSCULOSKELETAL:No Clubbing/cyanosis;muscles-grossly intact. Left hand. Bite sven of the left thumb. Decreased swelling redness of the left hand which also extends into the forearm. Improving range of motion.: Improving INVESTIGATIONS, reviewed in the clinical context: November 24: White count 13.6 hemoglobin 13.1 potassium 3.9 creatinine 0.9 November 23: White count 18.9 hemoglobin 14.5 platelets 207 sodium 137 potassium 4.1 creatinine 0.85 Troponin I 0.037, 0.043, 0.040 LDL 59.4 EKG tracing personally reviewed by me-[from [facility]] sinus rhythm. ST-T waves depression left and inferolateral leads. 2D echocardiogram EF 55 to 60%. Moderate concentric LVH Chest x-ray film personally reviewed by me-some hyperinflation Assessment and plan: -Accelerated hypertension. Patient has a prior history of hypertension was not taking any medications. Now presenting with a blood pressure of 240 systolic. Had to be put on a Cardizem drip.: Slow to respond Also positive troponin. Cozaar increased to 50 mg twice daily.. Increase Coreg. To 12.5 twice daily - Troponin leak from uncontrolled blood pressure Seen by cardiology -Gram-negative rods in blood culture/bacteremia from outside hospital Continue IV Unasyn. Repeat blood cultures drawn -COPD-current smoker DuoNeb 3 times daily -Chronic nicotine dependence cigarette smoker Nicotine patch 21 -Hypertensive heart disease Coreg. Cozaar i -Obesity BMI 35.3 Weight loss measures -Dog bite with infected left thumb and surrounding area of the hand.: Improving Seen by Dr. Lars Garcia: Does not felt to have any tenosynovitis. . Tetanus shot. IV Unasyn. Keep left arm elevated. Increase Coreg Cozaar. Repeat blood cultures drawn. Follow with ID. Past Medical History Past Medical History: Hypertension Additional Past Medical History / Comment(s): hernia History of Any Multi-Drug Resistant Organisms: None Reported Past Surgical History: No Surgical Hx Reported Smoking Status: Current every day smoker Past Alcohol Use History: Daily Past Drug Use History: Marijuana
[2023-11-25] MEDS: ATORVASTATIN 40 MG TAB PO SCH (20:32)
[2023-11-26] MEDS: ALPRAZolam 0.25 MG TAB PO PRN (02:54)
[2023-11-26] MEDS: AMPICILLIN-SULBACTAM 3 GM in SODIUM CHLORIDE 0.9% 100 ML IVPB SCH ×4 (02:55→22:29)
[2023-11-26] MEDS: SODIUM CHLORIDE 0.9% 1,000 ML IV SCH (02:56)
[2023-11-26 04:24] LABS: Basophils % (A) 1 %; Eosinophils # (A) 0.5 k/uL (0-0.7); Eosinophils % (A) 7 %; HCT 35.9 % (39.0-53.0); HGB 12.6 gm/dL (13.0-17.5); Lymphocytes # (A) 1.5 k/uL (1.0-4.8); Lymphocytes % (A) 20 %; MCH 34.5 pg (25.0-35.0); MCHC 35.1 g/dL (31.0-37.0); MCV 98.4 fL (80.0-100.0); Mean Platelet Volume 8.4; Monocytes # (A) 0.6 k/uL (0-1.0); Monocytes % (A) 8 %; Neutrophils # (A) 4.6 k/uL (1.3-7.7); Neutrophils % (A) 61 %; Platelet Count 183 k/uL (150-450); RBC 3.65 m/uL (4.30-5.90); RDW 12.4 % (11.5-15.5); WBC 7.5 k/uL (3.8-10.6)
[2023-11-26 04:53] LABS: African American GFR (CKD) >90 (>60 ml/min/1.73 sqM); Anion Gap 5 mmol/L; Blood Urea Nitrogen 9 mg/dL (9-20); Calcium 8.3 mg/dL (8.4-10.2); Carbon Dioxide 23 mmol/L (22-30); Chloride 107 mmol/L (98-107); Glucose 97 mg/dL (74-99); Non-African American GFR(CKD) >90 (>60 ml/min/1.73 sqM); Potassium 3.2 mmol/L (3.5-5.1); Sodium 135 mmol/L (137-145)
[2023-11-26] MEDS: ASPIRIN 81 MG PO SCH (07:50)
[2023-11-26] MEDS: NICOTINE 21MG/24HR PATCH TRANSDERM SCH (07:51)
[2023-11-26] MEDS: LOSARTAN 50 MG TAB PO SCH ×2 (07:51→22:02)
[2023-11-26] MEDS: ENOXAPARIN 40 MG/0.4 ML SYRINGE SQ SCH (07:51)
[2023-11-26] MEDS: carvediloL 12.5 MG TAB PO SCH ×2 (07:51→17:30)
[2023-11-26] MEDS: hydroCHLOROthiazide 25 MG TAB PO SCH (07:51)
[2023-11-26] MEDS: NAPROXEN 250 MG TAB PO SCH ×3 (07:52→21:57)
[2023-11-26] MEDS ORDERED: POTASSIUM CHLORIDE ER 20 MEQ TAB.ER PO STA (08:06)
[2023-11-26] MEDS: IPRATROPIUM-ALBUTEROL 3 ML NEB INHALATION SCH ×3 (08:34→19:30)
--- NOTE | 2023-11-26 10:42 | P.PN ---
Subjective HISTORY OF PRESENT ILLNESS: This is a 58 year old male with a past medical history significant for hypertension and nicotine dependence. 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 We have been asked to see the patient in consultation for hyper tension. Patient examined at the bedside in the ER. Patient initially presented to [facility] due to an infection in his left hand after sustaining a dog bite. Patient was found to have significantly elevated blood pressures with a systolic over 200 and he was transferred to [facility] for further evaluation. The patient was initially started on a Cardene drip. This has subsequently been discontinued. His most recent blood pressure is 159/92. Patient's family is at the bedside and states the patient does have a history of hypertension and was previously prescribed antihypertensive medications but he stopped taking these. He currently denies any chest pain or pressure. He denies any shortness of breath. He states that he walks about 15,000 steps a day without any issues. He is a current cigarette smoker and smokes 1 and half packs per day. DIAGNOSTICS: - EKG reveals T wave inversions in inferolateral leads. LVH. - Laboratory data: WBC 18.9. Hemoglobin 14.5. Platelet count 207. Sodium 137. Potassium 4.1. BUN 7. Creatinine 0.85. Lactic acid 1.7. Troponin 0.037. 0.043. - Current home cardiac medications include none - Most recent echocardiogram obtained in 2018 revealed ejection fraction 55 to 60%, moderate LVH - Cardiac catheterization history: Patient denies November 24, 2023 Patient examined this morning at the bedside. Patient denies chest pain or pressure. He denies shortness of breath. Blood pressure remains elevated this morning with a reading of 178/111. Echocardiogram completed revealing ejection fraction 55 to 60%, mild to moderate LVH, mild to moderate MR, mild TR. November 25, 2023 Patient examined this morning at the bedside. Patient denies chest pain or pressure. He denies shortness of breath. Blood pressure this morning is elevated at 206/104. Patient's carvedilol and losartan have been increased. November 26, 2023 Patient examined this morning at the bedside. Patient denies chest pain or pressure. He denies shortness of breath. Blood pressure overnight with a systolic in the [id number]. Blood pressure this morning is 187/135 prior to receiving any medications. PHYSICAL EXAM: VITAL SIGNS: Reviewed. GENERAL: Well-developed in no acute distress. HEENT: Head is normocephalic. Pupils are equal, round. Sclerae anicteric. Mucous membranes of the mouth are moist. Neck supple. No JVD or thyromegaly LUNGS: Respirations even and unlabored. Lungs essentially clear to auscultation bilaterally. HEART: Regular rate and rhythm. S1 and S2 heard. ABDOMEN: Soft. Nondistended. Nontender. EXTREMITIES: Normal range of motion. No clubbing or cyanosis. Peripheral pulses intact. No lower extremity edema. Erythema and swelling noted to left hand. NEUROLOGIC: Awake and alert. Oriented x 3. ASSESSMENT: Left hand infection, status post dog bite Leukocytosis Hypertensive emergency, improved Abnormal troponins, flat, likely secondary to uncontrolled blood pressures and infectious process History of hypertension, not on antihypertensive medications outpatient Nicotine dependence, patient smokes 1.5 packs/day Obesity: BMI 35.3 History of medication noncompliance PLAN: Continue current dose of losartan, carvedilol, and hydrochlorothiazide Continue aspirin and atorvastatin Patient educated on blood pressure management. Reinforced to patient that it may take some time to get his blood pressure under control. Patient verbalized understanding. Patient encouraged to keep a log of his blood pressures at home and bring them with him to his follow-up appointment. Patient is stable for discharge home from a cardiac standpoint Patient is to follow-up on an outpatient basis with Dr. Boland We will plan for outpatient stress testing once patient's blood pressure is well-controlled We will sign off. Please reconsult if needed. Nurse practitioner note has been reviewed by physician. Signing provider agrees with the documented findings, assessment, and plan of care documented by PRODUCTION SUPV as a scribe. Objective - Vital Signs Vital signs: Vital Signs Temp 97.9 F 11/26/23 07:30 Pulse 65 11/26/23 07:30 Resp 18 11/26/23 07:30 BP 187/135 11/26/23 07:30 Pulse Ox 96 11/26/23 07:30 FiO2 21 11/24/23 12:32 Intake & Output 11/25/23 11/26/23 11/26/23 18:59 06:59 18:59 Intake Total 360 Balance 360 Intake: Oral 360 Other: Voiding Method Toilet Toilet # Voids 4 3 - Labs CBC & Chem 7: 11/26/23 03:50 11/26/23 03:50 Labs: Abnormal Lab Results - Last 24 Hours (Table) 11/26/23 11/26/23 Range/Units 03:50 03:50 RBC 3.65 L (4.30-5.90) m/uL Hgb 12.6 L (13.0-17.5) gm/dL Hct 35.9 L (39.0-53.0) % Sodium 135 L (137-145) mmol/L Potassium 3.2 L (3.5-5.1) mmol/L Calcium 8.3 L (8.4-10.2) mg/dL Microbiology - Last 24 Hours (Table) 11/23/23 02:00 Blood Culture - Preliminary Blood 11/23/23 02:15 Blood Culture - Preliminary Blood 11/24/23 11:10 Gram Stain - Preliminary Hand - Left
--- NOTE | 2023-11-26 16:48 | P.PN ---
Subjective Progress Note Date: 11/25/23 Principal diagnosis: Reason for follow-up is left thumb and forearm dog bite cellulitis Patient is a 66-year-old male with a past medical his significant for hypertension current everyday smoker apparently has been bitten of his left thumb by his dog while he was at the vet office on , 11/19/2023, patient is a 1 developing significant swelling and redness to the thumb and the left forearm for the patient present to the hospital. On today's evaluation that is 11/25/2023 patient remains to be afebrile, patient is breathing comfortably on room air, the patient denies any chest pain shortness with or cough no nausea vomiting no abdominal pain or diarrhea, the patient pain and discomfort to the thumb and the forearm has decreased redness has decreased and no further drainage Patient white count is down to 13.64, creatinine 0.9 as of yesterday no lab draw today, CRP 25.2 blood cultures done at the outside facility came back positive with gram-negative rods Objective - Vital Signs Vital signs: Vital Signs Temp 98.8 F 11/25/23 07:35 Pulse 87 11/25/23 07:35 Resp 18 11/25/23 07:35 BP 206/104 11/25/23 07:35 Pulse Ox 96 11/25/23 07:35 FiO2 21 11/24/23 12:32 Intake & Output 11/24/23 11/25/23 11/25/23 18:59 06:59 18:59 Intake Total 200 240 Balance 200 240 Intake: Intake, IV Titration 200 Amount Ampicillin-Sulbactam 3 gm 200 In Sodium Chloride 0.9% 100 ml @ 200 mls/hr IVPB Q6H [facility] Rx#:[id number] Oral 240 Other: Voiding Method Toilet Toilet # Voids 3 - Exam GENERAL DESCRIPTION: Middle-age male lying in bed in no distress RESPIRATORY SYSTEM: Unlabored breathing , decreased breath sounds at bases HEART: S1 S2 regular rate and rhythm , ABDOMEN: Soft , no tenderness EXTREMITIES: left thumb and left upper extremity swelling redness decreased no further drainage - Labs CBC & Chem 7: 11/26/23 03:50 11/26/23 03:50 Labs: Microbiology - Last 24 Hours (Table) 11/24/23 11:10 Gram Stain - Preliminary Hand - Left 11/23/23 02:00 Blood Culture - Preliminary Blood 11/23/23 02:15 Blood Culture - Preliminary Blood Assessment and Plan (1) Gram-negative bacteremia Current Visit: Yes Status: Acute Code(s): R78.81 - BACTEREMIA SNOMED Code(s): 737214729914 (2) Cellulitis of left hand Current Visit: Yes Status: Acute Code(s): L03.114 - CELLULITIS OF LEFT UPPER LIMB SNOMED Code(s): 41327244736028807 (3) Dog bite Current Visit: Yes Status: Acute Code(s): W54.0XXA - BITTEN BY DOG, INITIAL ENCOUNTER SNOMED Code(s): 283606578 Plan: 1patient presented to hospital with left thumb and left upper extremity cellulitis started with a dog bite to the left thumb area we will need to cover for the polymicrobial aiden usually associated with dog bite infection [id number] bacteremia source likely left thumb abscess and forearm cellulitis, blood culture done at this facility so far pending 3patient to continue with-Unasyn 3 g every 6 hours while waiting for the culture to finalize and monitor clinical course closely Dictation was produced using [employer] 3 dictation software. please excuse any grammatical, word or spelling errors. Time with Patient: Less than 30
--- NOTE | 2023-11-26 16:49 | P.PN ---
Subjective Progress Note Date: 11/26/23 Principal diagnosis: Reason for follow-up is left thumb and forearm dog bite cellulitis Patient is a 66-year-old male with a past medical his significant for hypertension current everyday smoker apparently has been bitten of his left thumb by his dog while he was at the vet office on , 11/19/2023, patient is a 1 developing significant swelling and redness to the thumb and the left forearm for the patient present to the hospital. On today's evaluation that is 11/26/2023, patient remains to be afebrile, the patient is breathing comfortably on room air denies any chest pain shortness of breath or cough no nausea vomiting no abdominal pain no diarrhea has been reported, patient pain to the left thumb and left forearm has decreased in intensity. The patient white count is normalized to 7.5 creatinine 0.78 blood cultures negative so far left hand culture pending blood culture from outside facility pending Objective - Vital Signs Vital signs: Vital Signs Temp 97.9 F 11/26/23 07:30 Pulse 65 11/26/23 07:30 Resp 18 11/26/23 07:30 BP 187/135 11/26/23 07:30 Pulse Ox 96 11/26/23 07:30 FiO2 21 11/24/23 12:32 Intake & Output 11/25/23 11/26/23 11/26/23 18:59 06:59 18:59 Intake Total 360 Balance 360 Intake: Oral 360 Other: Voiding Method Toilet Toilet # Voids 4 3 - Exam GENERAL DESCRIPTION: Middle-age male lying in bed in no distress RESPIRATORY SYSTEM: Unlabored breathing , decreased breath sounds at bases HEART: S1 S2 regular rate and rhythm , ABDOMEN: Soft , no tenderness EXTREMITIES: left thumb and left upper extremity swelling redness decreased no further drainage - Labs CBC & Chem 7: 11/26/23 03:50 11/26/23 03:50 Labs: Abnormal Lab Results - Last 24 Hours (Table) 11/26/23 11/26/23 Range/Units 03:50 03:50 RBC 3.65 L (4.30-5.90) m/uL Hgb 12.6 L (13.0-17.5) gm/dL Hct 35.9 L (39.0-53.0) % Sodium 135 L (137-145) mmol/L Potassium 3.2 L (3.5-5.1) mmol/L Calcium 8.3 L (8.4-10.2) mg/dL Microbiology - Last 24 Hours (Table) 11/23/23 02:00 Blood Culture - Preliminary Blood 11/23/23 02:15 Blood Culture - Preliminary Blood 11/24/23 11:10 Gram Stain - Preliminary Hand - Left Assessment and Plan (1) Gram-negative bacteremia Current Visit: Yes Status: Acute Code(s): R78.81 - BACTEREMIA SNOMED Code(s): 210519510219 (2) Cellulitis of left hand Current Visit: Yes Status: Acute Code(s): L03.114 - CELLULITIS OF LEFT UPPER LIMB SNOMED Code(s): 26591816690981484 (3) Dog bite Current Visit: Yes Status: Acute Code(s): W54.0XXA - BITTEN BY DOG, INITIAL ENCOUNTER SNOMED Code(s): 815061867 Plan: 1patient presented to hospital with left thumb and left upper extremity cellulitis started with a dog bite to the left thumb area we will need to cover for the polymicrobial aiden usually associated with dog bite infection [id number] bacteremia source likely left thumb abscess and forearm cellulitis, blood culture done at this facility so far pending 3patient has shown clinical improvement and will continue with-Unasyn 3 g every 6 hours while waiting for the culture to finalize to determine his discharge antibiotics Dictation was produced using [employer] dictation software. please excuse any gram matical, word or spelling errors. Time with Patient: Less than 30
--- NOTE | 2023-11-26 16:49 | P.PN ---
Progress Note - Text Progress Note Date: 11/26/23 Chief Complaint: Dog bite This is a pleasant 58-year-old patient who follows with Dr. Matos. In fact has not followed up for quite some time. Patient has been prescribed medication for hypertension and ran out of his insurance changed his job and never took medications again. Yesterday taken his pitbull dog which she has had for 5 years down to the dental mold maker. To get his ear checked out. The dog was per anesthesia but they realized that the dog is actually not fully under. He tried to pet the dog down. While the dog was still a bit confused and it bit his left thumb. Patient then went down to [facility]. He was noted to have a blood pressure over 220 systolic. Also some EKG changes. He was felt to have flexor tenosynovitis as he was sent down here for orthopedic. The hand become painful and swollen. And some limitation of movement of his fingers. He had a white count of 18.4 started on Unasyn. Patient was put on Cardizem infusion and was transferred here. It does not seem that patient was given a tetanus shot at [facility]. Patient denies any chest pain. Being a smoker patient is at baseline has some wheezing and cough. The pitbull dog is held all his immunizations. November 24: Resting in bed. Some improvement in range of motion around the thumb and index finger able to make a better fist. No fever no chills. Getting IV Unasyn. Naproxen. Pain is better. Seen by orthopedics Dr. Lars Garcia. Patient does not have any flexor tenosynovitis. Per cardiology Cardizem discontinued started on Coreg. November 25: Pain swelling redness of the left thumb is coming down. Movements are improved. ID Dr. Patel got a call from the outside hospital that blood culture positive for gram-negative rods. Repeat blood cultures have been ordered. Overall patient is feeling better. Blood pressure was over 200 systolic. This morning. Cozaar was increased to 50 mg twice daily and Coreg was changed to 12.5 mg twice daily. Patient on IV Unasyn. November 26: Sitting up comfortable. Swelling in the left hand and thumb is better. Improved range of motion. On IV Unasyn. Blood cultures from November 23 remain negative till now. Blood pressure still running high. Will add prazosin 1 mg 3 times daily. Await further input from ID. Active Medications Acetaminophen (Acetaminophen Tab 325 Mg Tab) 650 mg PO Q6HR PRN PRN Reason: Mild Pain or Fever > 100.5 Last Admin: 11/26/23 02:54 Dose: 650 mg Albuterol/Ipratropium (Ipratropium-Albuterol 3 Ml Neb) 3 ml INHALATION RT-TID [facility] Last Admin: 11/26/23 11:54 Dose: Not Given Alprazolam (Alprazolam 0.25 Mg Tab) 0.25 mg PO Q6HR PRN PRN Reason: Anxiety Last Admin: 11/26/23 02:54 Dose: 0.25 mg Aspirin (Aspirin 81 Mg) 81 mg PO DAILY [facility] Last Admin: 11/26/23 07:50 Dose: 81 mg Atorvastatin Calcium (Atorvastatin 40 Mg Tab) 40 mg PO HS [facility] Last Admin: 11/25/23 20:32 Dose: 40 mg Calcium Carbonate/Glycine (Calcium Carbonate 500 Mg Chewable) 1,000 mg PO Q4HR PRN PRN Reason: Dyspepsia Carvedilol (Carvedilol 12.5 Mg Tab) 12.5 mg PO BID-W/MEALS [facility] Last Admin: 11/26/23 07:51 Dose: 12.5 mg Enoxaparin Sodium (Enoxaparin 40 Mg/0.4 Ml Syringe) 40 mg SQ DAILY [facility] Last Admin: 11/26/23 07:51 Dose: 40 mg Hydrochlorothiazide (Hydrochlorothiazide 25 Mg Tab) 25 mg PO DAILY [facility] Last Admin: 11/26/23 07:51 Dose: 25 mg Sodium Chloride (Saline 0.9%) 1,000 mls @ 10 mls/hr IV .Q24H [facility] Last Admin: 11/26/23 02:56 Dose: Not Given Ampicillin Sodium/Sulbactam (Sodium 3 gm/ Sodium Chloride) 100 mls @ 200 mls/hr IVPB Q6H [facility]; Protocol Last Admin: 11/26/23 08:43 Dose: 200 mls/hr Lactulose (Lactulose 20 Gm/30 Ml Cup) 20 gm PO DAILY PRN PRN Reason: Constipation Losartan Potassium (Losartan 50 Mg Tab) 50 mg PO BID [facility] Last Admin: 11/26/23 07:51 Dose: 50 mg Morphine Sulfate (Morphine Sulfate 4 Mg/Ml Syringe) 4 mg IV Q4HR PRN PRN Reason: Severe Pain (Scale 7 to 10) Naloxone HCl (Naloxone 0.4 Mg/Ml 1 Ml Vial) 0.2 mg IV Q2M PRN PRN Reason: Opioid Reversal Naproxen (Naproxen 250 Mg Tab) 250 mg PO TID [facility] Last Admin: 11/26/23 07:52 Dose: 250 mg Nicotine (Nicotine 21mg/24hr Patch) 1 patch TRANSDERM DAILY [facility] Last Admin: 11/26/23 07:51 Dose: 1 patch Ondansetron HCl (Ondansetron 4 Mg/2 Ml Vial) 4 mg IVP Q8HR PRN PRN Reason: Nausea And Vomiting Prazosin HCl (Prazosin 1 Mg Cap) 1 mg PO TID [facility] Temazepam (Temazepam 15 Mg Cap) 15 mg PO HS PRN PRN Reason: Insomnia Social history: Patient lives with his girlfriend Amirah. 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 Smokes a pack and a day for close to 40 years. Drinks 6 pack beer a night. Does marijuana. Physical examination: VITAL SIGNS: 97.9, 70, 18, 175/110, 99% room air GENERAL: Sitting up awake comfortable. EYES: Pupils equal. Conjunctiva aditi l. HEENT: External appearance of nose and ears normal, oral cavity grossly normal. NECK: JVD not raised; masses not palpable. HEART: First and second heart sounds are normal; no edema. LUNGS: Respiratory rate normal; decreased breath sounds some wheezing. ABDOMEN: Soft, nontender, liver spleen not palpable, no masses palpable. PSYCH: Alert and oriented x3; mood and affect aditi l. MUSCULOSKELETAL:No Clubbing/cyanosis;muscles-grossly intact. Left hand. Bite sven of the left thumb. Decreased swelling redness of the left hand which also extends into the forearm. Improving range of motion.: Improving INVESTIGATIONS, reviewed in the clinical context: November 26: White count 7.5 hemoglobin 12.6 potassium 3.2 creatinine 0.78. Procalcitonin 0.09 November 24: White count 13.6 hemoglobin 13.1 potassium 3.9 creatinine 0.9 November 23: White count 18.9 hemoglobin 14.5 platelets 207 sodium 137 potassium 4.1 creatinine 0.85 Troponin I 0.037, 0.043, 0.040 LDL 59.4 EKG tracing personally reviewed by me-[from Omar] sinus rhythm. ST-T waves depression left and inferolateral leads. 2D echocardiogram EF 55 to 60%. Moderate concentric LVH Chest x-ray film personally reviewed by me-some hyperinflation Assessment and plan: -Accelerated hypertension. Patient has a prior history of hypertension was not taking any medications. Now presenting with a blood pressure of 240 systolic. Had to be put on a Cardizem drip.: Uncontrolled Also positive troponin. Cozaar 50 mg twice daily.. Coreg. - 12.5 twice daily. Add prazosin 1 mg 3 times daily. Add chlorthalidone 25 mg a day - Troponin leak from uncontrolled blood pressure Seen by cardiology -Gram-negative rods in blood culture/bacteremia from outside hospital Continue IV Unasyn. Repeat blood cultures November 23: Negative till now -COPD-current smoker DuoNeb 3 times daily -Chronic nicotine dependence cigarette smoker Nicotine patch -Hypertensive heart disease Coreg. Cozaar i -Obesity BMI 35.3 Weight loss measures -Dog bite with infected left thumb and surrounding area of the hand.: Improving Seen by Dr. Lars Garcia: Does not felt to have any tenosynovitis. . Tetanus shot. IV Unasyn. Keep left arm elevated. Add prazosin 1 mg 3 times daily and chlorthalidone 25 mg a day. Follow with ID Past Medical History Past Medical History: Hypertension Additional Past Medical History / Comment(s): hernia History of Any Multi-Drug Resistant Organisms: None Reported Past Surgical History: No Surgical Hx Reported Smoking Status: Current every day smoker Past Alcohol Use History: Daily Past Drug Use History: Marijuana
[2023-11-26] MEDS: PRAZOSIN 1 MG CAP PO SCH ×2 (17:31→22:02)
[2023-11-26 20:55] VITALS: RESP 16
[2023-11-26] MEDS: ATORVASTATIN 40 MG TAB PO SCH (22:02)
[2023-11-27] MEDS: AMPICILLIN-SULBACTAM 3 GM in SODIUM CHLORIDE 0.9% 100 ML IVPB SCH ×2 (04:06→12:16)
[2023-11-27 07:09] LABS: African American GFR (CKD) >90 (>60 ml/min/1.73 sqM); Anion Gap 4 mmol/L; Blood Urea Nitrogen 9 mg/dL (9-20); Calcium 8.5 mg/dL (8.4-10.2); Carbon Dioxide 25 mmol/L (22-30); Chloride 110 mmol/L (98-107); Glucose 99 mg/dL (74-99); Non-African American GFR(CKD) >90 (>60 ml/min/1.73 sqM); Potassium 3.6 mmol/L (3.5-5.1); Sodium 139 mmol/L (137-145)
[2023-11-27] MEDS: IPRATROPIUM-ALBUTEROL 3 ML NEB INHALATION SCH ×2 (08:09→11:23)
[2023-11-27] MEDS: ENOXAPARIN 40 MG/0.4 ML SYRINGE SQ SCH (08:54)
[2023-11-27] MEDS: NICOTINE 21MG/24HR PATCH TRANSDERM SCH (08:54)
[2023-11-27] MEDS: NAPROXEN 250 MG TAB PO SCH (08:54)
[2023-11-27] MEDS: LOSARTAN 50 MG TAB PO SCH (08:54)
[2023-11-27] MEDS: PRAZOSIN 1 MG CAP PO SCH (08:55)
[2023-11-27] MEDS: carvediloL 12.5 MG TAB PO SCH (08:55)
[2023-11-27] MEDS: ASPIRIN 81 MG PO SCH (08:55)
[2023-11-27] MEDS ORDERED: CHLORTHALIDONE 25 MG TAB PO SCH (09:00)
[2023-11-27 09:13] VITALS: BP 169/107; PULSE 64; TEMP 98.2
[2023-11-27] MEDS: SODIUM CHLORIDE 0.9% 1,000 ML IV SCH (11:57)
--- NOTE | 2023-11-27 12:47 | P.PN ---
Subjective Progress Note Date: 11/27/23 Principal diagnosis: Reason for follow-up is left thumb and forearm dog bite cellulitis Patient is a 66-year-old male with a past medical his significant for hypertension current everyday smoker apparently has been bitten of his left thumb by his dog while he was at the vet office on , 11/19/2023, patient is a 3 developing significant swelling and redness to the thumb and the left forearm for the patient present to the hospital. On today's evaluation that is 11/27/2023, the patient continues to be afebrile patient is currently breathing comfortably on room air not requiring any oxygen, the patient denies having any chest pain shortness of breath or cough, the patient denies nausea vomiting no abdominal pain no diarrhea. Patient pain to the left thumb and the forearm has much improved redness has decreased no further drainage. The patient white count normalized to 7.5 as of yesterday's creatinine 0.81 blood and local culture has been negative here blood culture done at [facility] grew Pasteurella that was a sensitive pathogen Objective - Vital Signs Vital signs: Vital Signs Temp 98.2 F 11/27/23 07:49 Pulse 64 11/27/23 07:49 Resp 16 11/27/23 08:00 BP 169/107 11/27/23 07:49 Pulse Ox 99 11/27/23 07:49 FiO2 21 11/24/23 12:32 Intake & Output 11/26/23 11/27/23 11/27/23 18:59 06:59 18:59 Intake Total 590 Balance 590 Intake: Oral 590 Other: Voiding Method Toilet Toilet Toilet # Voids 3 2 - Exam GENERAL DESCRIPTION: Middle-age male lying in bed in no distress RESPIRATORY SYSTEM: Unlabored breathing , decreased breath sounds at bases HEART: S1 S2 regular rate and rhythm , ABDOMEN: Soft , no tenderness EXTREMITIES: left thumb and left upper extremity swelling redness has significantly decreased no further drainage - Labs CBC & Chem 7: 11/26/23 03:50 11/27/23 06:26 Labs: Abnormal Lab Results - Last 24 Hours (Table) 11/27/23 Range/Units 06:26 Chloride 110 H (98-107) mmol/L Microbiology - Last 24 Hours (Table) 11/24/23 11:10 Anaerobic Culture - Preliminary Hand - Left 11/24/23 11:10 Gram Stain - Final Hand - Left Wound Culture - Final 11/23/23 02:00 Blood Culture - Preliminary Blood 11/23/23 02:15 Blood Culture - Preliminary Blood Assessment and Plan (1) Gram-negative bacteremia Current Visit: Yes Status: Acute Code(s): R78.81 - BACTEREMIA SNOMED Code(s): 530201515812 (2) Cellulitis of left hand Current Visit: Yes Status: Acute Code(s): L03.114 - CELLULITIS OF LEFT UPPER LIMB SNOMED Code(s): 64640433175440016 (3) Dog bite Current Visit: Yes Status: Acute Code(s): W54.0XXA - BITTEN BY DOG, INITIAL ENCOUNTER SNOMED Code(s): 294514914 Plan: 1patient presented to hospital with left thumb and left upper extremity cellulitis started with a dog bite to the left thumb area we will need to cover for the polymicrobial aiden usually associated with dog bite infection 2-Pasteurella bacteremia source likely left thumb abscess and forearm cellulitis, blood culture done at this facility so far pending 3patient has shown clinical improvement and will finish therapy with oral Augmentin 875 twice daily for 2 weeks prescription has been sent to the pharmacy and close outpatient follow-up Dictation was produced using [employer] dictation software. please excuse any grammatical, word or spelling errors. Time with Patient: Less than 30
[2023-11-27] MEDS ORDERED: PRAZOSIN 1 MG CAP PO SCH (14:00)
--- NOTE | 2023-11-27 17:42 | P.DS ---
Providers Date of admission: 11/23/23 02:52 Expected date of discharge: 11/27/23 Attending physician: Hollis Russell Consults: 11/23/23 02:52 Consult Physician Routine Consulting Provider: Domenic Mosquera Consult Reason/Comments: possible flexor tenosynovitis Do you want consulting provider notified?: Already Contacted 11/23/23 10:51 Consult Physician Routine Consulting Provider: Geoffrey Dan Consult Reason/Comments: infection Do you want consulting provider notified?: Yes Primary care physician: [facility] Course: Chief Complaint: Dog bite This is a pleasant 58-year-old patient who follows with Dr. Matos. In fact has not followed up for quite some time. Patient has been prescribed medication for hypertension and ran out of his insurance changed his job and never took medications again. Yesterday taken his pitbull dog which she has had for 5 years down to the senior data scientist. To get his ear checked out. The dog was per anesthesia but they realized that the dog is actually not fully under. He tried to pet the dog down. While the dog was still a bit confused and it bit his left thumb. Patient then went down to [facility]. He was noted to have a blood pressure over 220 systolic. Also some EKG changes. He was felt to have flexor tenosynovitis as he was sent down here for orthopedic. The hand become painful and swollen. And some limitation of movement of his fingers. He had a white count of 18.4 started on Unasyn. Patient was put on Cardizem infusion and was transferred here. It does not seem that patient was given a tetanus shot at [facility]. Patient denies any chest pain. Being a smoker patient is at baseline has some wheezing and cough. The pitbull dog is held all his immunizations. November 24: Resting in bed. Some improvement in range of motion around the thumb and index finger able to make a better fist. No fever no chills. Getting IV Unasyn. Naproxen. Pain is better. Seen by orthopedics Dr. Lars Garcia. Patient does not have any flexor tenosynovitis. Per cardiology Cardizem discontinued started on Coreg. November 25: Pain swelling redness of the left thumb is coming down. Movements are improved. ID Dr. Patel got a call from the outside hospital that blood culture positive for gram-negative rods. Repeat blood cultures have been ordered. Overall patient is feeling better. Blood pressure was over 200 systolic. This morning. Cozaar was increased to 50 mg twice daily and Coreg was changed to 12.5 mg twice daily. Patient on IV Unasyn. November 26: Sitting up comfortable. Swelling in the left hand and thumb is better. Improved range of motion. On IV Unasyn. Blood cultures from November 23 remain negative till now. Blood pressure still running high. Will add prazosin 1 mg 3 times daily. Await further input from ID. November 27: Healing continues to improve. Patient cleared by Dr. Dan for discharge. Will receive 2 more weeks of Augmentin. Patient not to return to work for another week. Blood pressure still on the higher side today. Prazosin increased to 2 mg 3 times daily. Patient will follow-up with ID, cardiology. And orthopedic. Questions answered. Counseled about smoking again. Discussion and discharge planning more than 35 minutes Social history: Patient lives with his girlfriend Amirah. 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 Smokes a pack and a day for close to 40 years. Drinks 6 pack beer a night. Does marijuana. Physical examination: VITAL SIGNS: 98.2, 64, 18, 169/107, 99% room air GENERAL: Sitting up awake comfortable. EYES: Pupils equal. Conjunctiva aditi l. HEENT: External appearance of nose and ears normal, oral cavity grossly normal. NECK: JVD not raised; masses not palpable. HEART: First and second heart sounds are normal; no edema. LUNGS: Respiratory rate normal; decreased breath sounds some wheezing. ABDOMEN: Soft, nontender, liver spleen not palpable, no masses palpable. PSYCH: Alert and oriented x3; mood and affect aditi l. MUSCULOSKELETAL:No Clubbing/cyanosis;muscles-grossly intact. Left hand. Bite sven of the left thumb. Decreased swelling redness of the left hand which also extends into the forearm. Improving range of motion.: Improving INVESTIGATIONS, reviewed in the clinical context: November 27: Potassium 3.6 November 26: White count 7.5 hemoglobin 12.6 potassium 3.2 creatinine 0.78. Procalcitonin 0.09 November 24: White count 13.6 hemoglobin 13.1 potassium 3.9 creatinine 0.9 November 23: White count 18.9 hemoglobin 14.5 platelets 207 sodium 137 potassium 4.1 creatinine 0.85 Troponin I 0.037, 0.043, 0.040 LDL 59.4 EKG tracing personally reviewed by me-[from Omar] sinus rhythm. ST-T waves depression left and inferolateral leads. 2D echocardiogram EF 55 to 60%. Moderate concentric LVH Chest x-ray film personally reviewed by me-some hyperinflation Assessment and plan: -Accelerated hypertension. Patient has a prior history of hypertension was not taking any medications. Now presenting with a blood pressure of 240 systolic. Had to be put on a Cardizem drip.: Uncontrolled Also positive troponin. Cozaar 50 mg twice daily.. Coreg. - 12.5 twice daily. Increase prazosin 2 mg 3 times daily. chlorthalidone 25 mg a day - Troponin leak from uncontrolled blood pressure Seen by cardiology -Gram-negative rods in blood culture/bacteremia from outside hospital. Continue IV Unasyn. Repeat blood cultures November 23: Negative till now Augmentin 875 twice daily for 14 days. -COPD-current smoker DuoNeb 3 times daily -Chronic nicotine dependence cigarette smoker Nicotine patch 21 -Hypertensive heart disease Coreg. Cozaar i -Obesity BMI 35.3 Weight loss measures -Dog bite with infected left thumb and surrounding area of the hand.: Improving Seen by Dr. Lars Garcia: Does not felt to have any tenosynovitis. . Tetanus shot. IV Unasyn. Keep left arm elevated. Disposition: Home Past Medical History Past Medical History: Hypertension Additional Past Medical History / Comment(s): hernia History of Any Multi-Drug Resistant Organisms: None Reported Past Surgical History: No Surgical Hx Reported Smoking Status: Current every day smoker Past Alcohol Use History: Daily Past Drug Use History: Marijuana Plan - Discharge Summary Discharge Rx Participant: No New Discharge Prescriptions: New Aspirin 81 mg PO DAILY tab carvediloL [Coreg*] 12.5 mg PO BID-W/MEALS #60 tab Nicotine 21Mg/24Hr Patch [Habitrol] 1 patch TRANSDERM DAILY #42 patch Chlorthalidone [Hygroton] 25 mg PO DAILY #30 tab Naproxen [Naprosyn] 250 mg PO BID #30 tab Losartan [Cozaar] 50 mg PO BID #60 tab Atorvastatin [Lipitor] 40 mg PO HS #30 tab Prazosin [Minipress] 2 mg PO TID #90 cap Budesonide/Formoterol Fumarate [Symbicort 80-4.5 Mcg Inhaler] 1 puff INHALATION BID #1 each Amoxic-Pot Clav 875-125Mg [Augmentin 875-125] 1 tab PO Q12HR 14 Days #28 tab Discharge Medication List Amoxic-Pot Clav 875-125Mg [Augmentin 875-125] 1 tab PO Q12HR 14 Days #28 tab 11/27/23 [Rx] Aspirin 81 mg PO DAILY tab 11/27/23 [Rx] Atorvastatin [Lipitor] 40 mg PO HS #30 tab 11/27/23 [Rx] Budesonide/Formoterol Fumarate [Symbicort 80-4.5 Mcg Inhaler] 1 puff INHALATION BID #1 each 11/27/23 [Rx] Chlorthalidone [Hygroton] 25 mg PO DAILY #30 tab 11/27/23 [Rx] Losartan [Cozaar] 50 mg PO BID #60 tab 11/27/23 [Rx] Naproxen [Naprosyn] 250 mg PO BID #30 tab 11/27/23 [Rx] Nicotine 21Mg/24Hr Patch [Habitrol] 1 patch TRANSDERM DAILY #42 patch 11/27/23 [Rx] Prazosin [Minipress] 2 mg PO TID #90 cap 11/27/23 [Rx] carvediloL [Coreg*] 12.5 mg PO BID-W/MEALS #60 tab 11/27/23 [Rx] Follow up Appointment(s)/Referral(s): Dusty Boland MD [Medical Doctor] - 1 Week (The office will call with a follow up appointment) Natasha Garcia DO [Doctor of Osteopathic Medicine] - As Needed Cruzito Matos MD [Primary Care Provider] - 12/01/23 8:00 am (appointment at [facility] [phone]) Geoffrey Dan MD [STAFF PHYSICIAN] - 1 Week (please call the office to schedule a follow up appointment) Patient Instructions/Handouts: Prazosin (By mouth), Naproxen (By mouth), Amoxicillin (By mouth), Nicotine (Absorbed through the skin), Chlorthalidone (By mouth), Losartan (By mouth), Atorvastatin (By mouth), Carvedilol (By mouth), Budesonide/Formoterol (By breathing), Cellulitis (GEN) Discharge/Stand Alone Forms: AA Meetings [place], Work/Release Restrictions Form Discharge Disposition: HOME SELF-CARE
== END 2023-11-27 13:58 | disposition home or self-care (01) | DRG 605 ==
LOC: EC 01:32 → 5NMEDONC 02:52
PROVIDERS: ADMIT Hospitalist; ATTEND Hospitalist
DX: S61.032A Puncture wound without foreign body of left thumb without damage to nail, initial encounter (principal); L03.114 Cellulitis of left upper limb; N17.9 Acute kidney failure, unspecified; I16.1 Hypertensive emergency; R78.81 Bacteremia; L03.012 Cellulitis of left finger; E66.9 Obesity, unspecified; Z68.35 Body mass index [BMI] 35.0-35.9, adult; I10 Essential (primary) hypertension; B96.89 Other specified bacterial agents as the cause of diseases classified elsewhere; I08.1 Rheumatic disorders of both mitral and tricuspid valves; W54.0XXA Bitten by dog, initial encounter; F17.210 Nicotine dependence, cigarettes, uncomplicated; Z71.6 Tobacco abuse counseling; F41.9 Anxiety disorder, unspecified; G47.00 Insomnia, unspecified; Z79.82 Long term (current) use of aspirin; Z79.899 Other long term (current) drug therapy; Z91.148 Patient's other noncompliance with medication regimen for other reason; Z79.51 Long term (current) use of inhaled steroids; Z71.3 Dietary counseling and surveillance
CPT/HCPCS: 36415; 71046; 80048; 80053; 80061; 83036; 83605; 84145; 84484; 85025; 85610; 85730; 86140; 87040; 87070; 87075; 87205; 90471; 90715; 93005; 93306; 94760; 96361; 96365; 96366; 96372; 99285